=== PATIENT | female | born 1955 | race Caucasian/White ===

== ENCOUNTER 2016-11-02 15:53 | Outpatient (CLI) | payer BC, OTHER | END 2016-11-02 15:54 | disposition home or self-care (01) | DX: I48.91 Unspecified atrial fibrillation (principal); Z79.01 Long term (current) use of anticoagulants ==

== ENCOUNTER 2017-01-11 16:36 | Outpatient (CLI) | payer BC, OTHER | END 2017-01-11 16:37 | disposition home or self-care (01) | DX: I48.91 Unspecified atrial fibrillation (principal); Z79.01 Long term (current) use of anticoagulants ==

== ENCOUNTER 2017-02-03 14:54 | Outpatient (CLI) | payer BC, OTHER | END 2017-02-03 14:55 | disposition home or self-care (01) | DX: I48.91 Unspecified atrial fibrillation (principal); Z79.01 Long term (current) use of anticoagulants ==

== ENCOUNTER 2017-03-01 16:03 | Outpatient (CLI) | payer BC, OTHER | END 2017-03-01 16:04 | disposition home or self-care (01) | LOC: LAB 16:03 | PROVIDERS: ATTEND Family Medicine | DX: I48.2 Chronic atrial fibrillation (principal) | CPT/HCPCS: 85610 ==

== ENCOUNTER 2017-03-17 08:00 | Outpatient (CLI) | payer BC, OTHER | END 2017-03-17 08:01 | disposition home or self-care (01) | LOC: LAB 08:00 | PROVIDERS: ATTEND Family Medicine | DX: I48.91 Unspecified atrial fibrillation (principal); Z79.01 Long term (current) use of anticoagulants | CPT/HCPCS: 85610 ==

== ENCOUNTER 2017-04-05 13:56 | Outpatient (CLI) | payer BC, OTHER | END 2017-04-05 13:57 | disposition home or self-care (01) | LOC: LAB 13:56 | PROVIDERS: ATTEND Family Medicine | DX: Z79.01 Long term (current) use of anticoagulants (principal) | CPT/HCPCS: 85610 ==

== ENCOUNTER 2017-04-14 13:42 | Outpatient (CLI) | payer BC, OTHER | END 2017-04-14 13:43 | disposition home or self-care (01) | LOC: LAB 13:42 | PROVIDERS: ATTEND Family Medicine | DX: I48.91 Unspecified atrial fibrillation (principal); Z79.01 Long term (current) use of anticoagulants | CPT/HCPCS: 85610 ==

== ENCOUNTER 2017-04-26 12:57 | Outpatient (CLI) | payer BC, OTHER | END 2017-04-26 12:58 | disposition home or self-care (01) | LOC: LAB 12:57 | PROVIDERS: ATTEND Family Medicine | DX: I48.91 Unspecified atrial fibrillation (principal); Z79.01 Long term (current) use of anticoagulants | CPT/HCPCS: 85610 ==

== ENCOUNTER 2017-05-19 17:23 | Outpatient (CLI) | payer BC, OTHER | END 2017-05-19 17:24 | disposition home or self-care (01) | LOC: LAB 17:23 | PROVIDERS: ATTEND Family Medicine | DX: I48.91 Unspecified atrial fibrillation (principal); Z79.01 Long term (current) use of anticoagulants | CPT/HCPCS: 85610 ==

== ENCOUNTER 2017-06-15 14:53 | Outpatient (CLI) | payer BC, OTHER | END 2017-06-15 14:54 | disposition home or self-care (01) | LOC: LAB 14:53 | PROVIDERS: ATTEND Family Medicine | DX: I48.91 Unspecified atrial fibrillation (principal); Z79.01 Long term (current) use of anticoagulants | CPT/HCPCS: 85610 ==

== ENCOUNTER 2017-06-20 12:48 | Outpatient (CLI) | payer BC, OTHER ==
--- NOTE | 2017-06-21 19:30 | Mammography Report ---
DIGITAL SCREENING MAMMOGRAM: 06/20/2017 CLINICAL INDICATION: A 61-year-old for screening. COMPARISON: 03/2015, 03/2014, 09/2012, 03/2010. TECHNIQUE: Routine CC and MLO projections were obtained of the breasts. The breasts demonstrate scattered fibroglandular densities bilaterally. Punctate, typically benign c alcifications are present. No suspicious masses, clustered microcalcifications, or regions of norberto ectural distortion are identified. IMPRESSION: BENIGN FINDINGS. RECOMMENDATION: ROUTINE ANNUAL SCREENING UNLESS OTHERWISE CLINICALLY INDICATED. BIRADS CATEGORY: 2, BENIGN FINDINGS. STANDARD QUALIFYING STATEMENTS 1. This examination was reviewed with the aid of Computed-Aided Detection (CAD). 2. A negative or benign imaging report should not delay biopsy if clinically suspicious findings are present. Consider surgical consultation if warranted. More than 5% of cancers are not identified b y imaging. 3. Dense breasts may obscure an underlying neoplasm. JOB #: [id number] EXT JOB #:[id number]
== END 2017-06-20 12:49 | disposition home or self-care (01) ==
LOC: DI 12:48
PROVIDERS: ATTEND Family Medicine
DX: Z12.31 Encounter for screening mammogram for malignant neoplasm of breast (principal)
CPT/HCPCS: 77067

== ENCOUNTER 2017-06-20 13:03 | Outpatient (CLI) | payer BC, OTHER ==
--- NOTE | 2017-06-24 16:13 | DEXA Report ---
DEXA SCAN: 06/20/2017 CLINICAL INDICATION: Postmenopausal. TECHNIQUE: Dual energy x-ray absorptiometry (DXA) was performed on a [employer] system. Regions measured are the AP spine, femoral neck, and, if needed, forearm. COMPARISON: None. In accordance with the International Society for Clinical Densitometry (ISCD) guidelines, data from previous exams may be reanalyzed using current recommendations and techniques. This is done to allow a more accurate basis for comparison with the current study. FINDINGS: The data for the lumbar spine is as follows: REGION BMD (g/cm/cm) T-SCORE Z-SCORE L1 1.000 -1.1 -0.9 L2 1.029 -1.4 -1.3 L3 1.109 -0.8 -0.6 L4 1.064 -1.1 -1.0 TOTAL 1.053 -1.1 -0.9 NOTE: All evaluable vertebrae are used for classification. The data for the hip is as follows: REGION BMD (g/cm/cm) T-SCORE Z-SCORE Neck 0.862 -1.3 -0.7 TOTAL 0.916 -0.7 -0.6 NOTE: The femoral neck or total proximal femur, whichever is lowest, is used for classification. IMPRESSION: THE WHO CLASSIFICATION BASED ON THE INTERNATIONAL REFERENCE STANDARD IS OSTEOPENIA. THE FRACTURE RISK IS INCREASED. RECOMMENDATION: Patients with diagnosis of osteoporosis or osteopenia should have regular bone mineral density assessment. For those eligible for Medicare, routine testing is allowed once every 2 years. Testing frequency can be increased for patients who have rapidly progressing disease or for those who are receiving medical therapy to restore bone mass. COMMENT: World Health Organization (WHO) definitions for osteoporosis and osteopenia: NORMAL BMD: T-score at -1.0 or higher, fracture risk is low. OSTEOPENIA BMD: T-score between -1.0 and -2.5, fracture risk is increased. OSTEOPOROSIS BMD: T-score at -2.5 or lower, fracture risk high. National Osteoporosis Foundation recommends: 1. Obtain adequate dietary calcium (at least 1200 mg per day) and vitamin D (400 -800 international units per day). 2. Participate, as appropriate, in regular weightbearing and muscle- strengthening exercise. 3. Avoid tobacco use and reduce alcohol and caffeine intake. 4. For more detailed information see the website at www.NOF.org. MTDD
== END 2017-06-20 13:04 | disposition home or self-care (01) ==
LOC: DI 13:03
PROVIDERS: ATTEND Family Medicine
DX: Z13.820 Encounter for screening for osteoporosis (principal); Z78.0 Asymptomatic menopausal state; M85.89 Other specified disorders of bone density and structure, multiple sites
CPT/HCPCS: 77080

== ENCOUNTER 2017-06-22 15:53 | Outpatient (CLI) | payer BC, OTHER | END 2017-06-22 15:54 | disposition home or self-care (01) | LOC: LAB 15:53 | PROVIDERS: ATTEND Family Medicine | DX: Z79.01 Long term (current) use of anticoagulants (principal); I48.91 Unspecified atrial fibrillation | CPT/HCPCS: 85610 ==

== ENCOUNTER 2017-07-22 15:24 | Outpatient (CLI) | payer BC, OTHER | END 2017-07-22 15:25 | disposition home or self-care (01) | LOC: LAB 15:24 | PROVIDERS: ATTEND Family Medicine | DX: I48.91 Unspecified atrial fibrillation (principal); Z79.01 Long term (current) use of anticoagulants | CPT/HCPCS: 85610 ==

== ENCOUNTER 2017-07-28 14:07 | Outpatient (CLI) | payer BC, OTHER ==
[2017-07-28 14:27] LABS: PT - PROTHROMBIN TIME 22.7 secs (9.9-12.6)
== END 2017-07-28 14:08 | disposition home or self-care (01) ==
LOC: LAB 14:07
PROVIDERS: ATTEND Family Medicine
DX: I48.2 Chronic atrial fibrillation (principal)
CPT/HCPCS: 36415; 85610

== ENCOUNTER 2017-08-04 14:12 | Outpatient (CLI) | payer BC, OTHER | END 2017-08-04 14:13 | disposition home or self-care (01) | LOC: LAB 14:12 | PROVIDERS: ATTEND Family Medicine | DX: I48.91 Unspecified atrial fibrillation (principal); Z79.01 Long term (current) use of anticoagulants | CPT/HCPCS: 85610 ==

== ENCOUNTER 2017-08-18 13:29 | Outpatient (CLI) | payer BC, OTHER | END 2017-08-18 13:30 | disposition home or self-care (01) | LOC: LAB 13:29 | PROVIDERS: ATTEND Family Medicine | DX: I48.91 Unspecified atrial fibrillation (principal); Z79.01 Long term (current) use of anticoagulants | CPT/HCPCS: 85610 ==

== ENCOUNTER → 2017-08-31 | Outpatient (CLI) | payer BC, OTHER | LOC: LAB 08:00 | PROVIDERS: ATTEND Family Medicine | DX: I48.91 Unspecified atrial fibrillation (principal); Z79.01 Long term (current) use of anticoagulants | CPT/HCPCS: 85610 ==

== ENCOUNTER 2017-09-22 12:48 | Outpatient (CLI) | payer BC, OTHER ==
--- NOTE | 2017-09-22 13:29 | XRAY Preliminary Report ---
Exam: XR HIP W/PELVIS 2-3V LT IMPRESSION: Normal pelvis and hip radiography. [facility] SITE ID: [id number]
--- NOTE | 2017-09-22 13:31 | XRAY Report ---
EXAM: LEFT HIP AND PELVIS RADIOGRAPHY EXAM DATE: 09/22/2017 01:20 PM. HISTORY: PAIN IN LEFT HIP. COMPARISONS: None. TECHNIQUE: 1 view of the pelvis and 1 view of the hip. FINDINGS: Bones: Normal. No fracture or bone lesion. Joints: The bilateral hip, pubis symphysis, and sacroiliac joints are preserved. Soft Tissues: Unremarkable. IMPRESSION: Normal pelvis and hip radiography. [facility] Referring Provider Line: [phone] SITE ID: [id number]
--- NOTE | 2017-09-22 13:34 | XRAY Preliminary Report ---
Exam: XR LUMBAR SPINE 2 VIEW IMPRESSION: Mild degenerative changes. [facility] SITE ID: [id number]
--- NOTE | 2017-09-22 13:36 | XRAY Report ---
EXAM: LUMBOSACRAL SPINE RADIOGRAPHY EXAM DATE: 09/22/2017 01:20 PM. CLINICAL HISTORY: PAIN IN LEFT HIP. COMPARISONS: None. TECHNIQUE: 3 views. FINDINGS: Alignment: Normal. No spondylolisthesis or scoliosis. Bones: 5 lumbar vertebrae. No fractures or bone lesions. Disks: Minimal disk space narrowing in the upper lumbar levels, most marked at L2-L3. Otherwise unrem arkable. Facets: Mild degenerative changes most marked at L4-L5 and L5-S1. Sacroiliac Joints: Unremarkable. Soft Tissues: Unremarkable. IMPRESSION: Mild degenerative changes. [facility] Referring Provider Line: [phone] SITE ID: [id number]
== END 2017-09-22 12:49 | disposition home or self-care (01) ==
LOC: DI 12:48
PROVIDERS: ATTEND Orthopaedic Surgery
DX: M25.552 Pain in left hip (principal); M47.896 Other spondylosis, lumbar region
CPT/HCPCS: 72100

== ENCOUNTER 2017-09-30 14:03 | Emergency (ER) | payer BC, OTHER ==
[2017-09-30] MEDS ORDERED: SODIUM CHLORIDE 0.9% 1,000 ML IV ONE (15:07)
--- NOTE | 2017-09-30 15:11 | ED Physician Documentation ---
PD HPI ABD PAIN - Stated complaint Stated Complaint: LEFT SIDE PAIN - Chief complaint Chief Complaint: Abd Pain - History obtained from History obtained from: Patient - History of Present Illness Timing - onset: Today Timing - details: Still present Quality: Pain Location: LUQ Associated symptoms: No: Fever, Nausea, Vomiting, Chest pain Similar symptoms before: No diagnosis (Similar symptoms about 4 months ago that resolved spontaneously within a few hours.) Recently seen: Surgery (9 days status post left partial knee replacement.) Review of Systems Constitutional: denies: Fever Nose: denies: Congestion Throat: denies: Sore throat Cardiac: denies: Chest pain / pressure Respiratory: denies: Dyspnea, Cough GI: reports: Abdominal Pain, Other ("Lots of belching."). denies: Nausea, Vomiting, Diarrhea : denies: Dysuria, Frequency Skin: denies: Rash Musculoskeletal: reports: Joint pain (Postsurgical left knee pain, without acute exacerbation.). denies: Back pain Neurologic: denies: Focal weakness, Numbness, Headache PD PAST MEDICAL HISTORY - Past Medical History Cardiovascular: Atrial fibrillation Respiratory: Asthma, COPD Endocrine/Autoimmune: Type 2 diabetes GI: GERD - Past Surgical History Past Surgical History: Yes General: Cholecystectomy, Gastric surgery Ortho: Knee replacement (9 days S/P partial left knee replacement.) /JUNIOR BUSINESS ANALYST: Hysterectomy - Present Medications Home Medications: Ambulatory Orders Medication Instructions Recorded Confirmed Furosemide [Lasix] 80 mg PO DAILY 04/15/13 10/10/14 Potassium Chloride 40 meq PO DAILY 04/15/13 10/10/14 Calcium [Calcio [place]] 500 mg PO DAILY 04/16/13 10/10/14 Cholecalciferol (Vitamin D3) 1,000 unit PO DAILY 04/16/13 10/10/14 [Vitamin D] Ferrous Fumarate [Iron] 65 mg PO DAILY 04/16/13 10/10/14 Fluticasone [Flonase] 50 mcg NS TPN/PPN 04/16/13 10/10/14 Ipratropium/Albuterol Inhaler 2 puffs INH QID 04/16/13 10/10/14 [Combivent Inhaler] Lysine [l-Lysine] 500 mg PO PRN 04/16/13 10/10/14 Multivitamin [Multi-Vitamin Daily] 1 each PO DAILY 04/16/13 10/10/14 Warfarin Sodium 10 mg PO DAILY 02/02/14 10/10/14 Epinephrine [Epipen 2-Cortez] 0.3 mg IM ONCE PRN #2 unit 05/11/14 10/10/14 Allopurinol 300 mg PO DAILY 10/10/14 10/10/14 Budesonide [Pulmicort Flexhaler] 2 puffs BID 10/10/14 10/10/14 Cetirizine [ZyrTEC] 10 mg DAILY 10/10/14 10/10/14 Nitrofurantoin [Macrobid] 100 mg PO BID #10 capsule 09/30/17 Promethazine [Phenergan] 25 - 50 mg PO Q6H PRN #10 tab 09/30/17 - Allergies Allergies/Adverse Reactions: Allergies Allergy/AdvReac Type Severity Reaction Status Date / Time acetaminophen [From Vicodin] Allergy Hives Verified 09/30/17 14:16 ciprofloxacin [From Cipro] Allergy Hives Verified 09/30/17 14:16 ciprofloxacin HCl * Allergy Hives Verified 09/30/17 14:16 [From Cipro] hydrocodone bitartrate * Allergy Hives Verified 09/30/17 14:16 [From Vicodin] meperidine HCl * Allergy Emesis Verified 09/30/17 14:16 [From Demerol] NSAIDS (Non-Steroidal Allergy Unknown Verified 09/30/17 14:16 Anti-Inflamma clarithromycin [From Biaxin] AdvReac Intermediate diarrhea Verified 09/30/17 14: 16 - Living Situation Living Situation: reports: With spouse/s.o. Living Arrangement: reports: At home - Social History Does the pt smoke?: No Smoking Status: Never smoker Does the pt drink ETOH?: No Does the pt have substance abuse?: No - Immunizations Immunizations are current?: No Immunizations: TDAP >10years/unknown, Other immun current - POLST Patient has POLST: No PD ED PE NORMAL - Vitals Vital signs reviewed: Yes (normal) - General General: Alert and oriented X 3, Well developed/nourished, Other (Overweight.) - HEENT HEENT: Atraumatic, Moist mucous membranes, Pharynx benign - Neck Neck: No adenopathy, No JVD - Cardiac Cardiac: RRR, No murmur - Respiratory Respiratory: No respiratory distress, Clear bilaterally - Abdomen Abdomen: Normal bowel sounds, Soft, Other (Mild tenderness to palpation in the left upper quadrant, without rebound tenderness or guarding.) - Back Back: No CVA TTP - Derm Derm: No rash - Extremities Extremities: No edema, No calf tenderness / cord, Other (Healing surgical wound at the anterior aspect of the left knee, without erythema or warmth to palpation.) - Neuro Neuro: Alert and oriented X 3, No motor deficit, Normal speech Results - Vitals Vitals: Oxygen O2 Source Room air - EKG (time done) 14:22 Rate: Rate (enter#) (75) Rhythm: NSR [place]: LAD (-41) QRS: LVH, Poor R wave progression Ischemia: Non specific changes (T-wave flattening in II, aVF, and V3-V6.) Compare to prior EKG: Unchanged from prior EKG Computer interpretation: Agree with computer - Labs Labs: Laboratory Tests 09/30/17 09/30/17 09/30/17 14:45 14:45 15:07 WBC 7.0 RBC 4.80 Hgb 13.9 Hct 41.1 MCV 85.6 MCH 29.0 MCHC 33.9 RDW 14.5 Plt Count 250 MPV 9.4 Neut # 4.8 Lymph # 1.3 L [place] # 0.6 Eos # 0.2 Baso # 0.0 Absolute Nucleated RBC 0.00 Nucleated RBC % 0.0 PT 26.0 H INR 2.4 H Sodium 139 Potassium 3.6 Chloride 105 Carbon Dioxide 22 Anion Gap 12.0 BUN 18 Creatinine 0.9 Estimated GFR (MDRD) 64 L Glucose 113 H Calcium 9.7 Total Bilirubin 0.4 AST 24 ALT 12 Alkaline Phosphatase 97 Total Protein 7.6 Albumin 3.9 Globulin 3.7 Albumin/Globulin Ratio 1.1 Lipase 25 Urine Color Urine Clarity Urine pH Ur Specific [place] Urine Protein Urine Glucose (UA) Urine Ketones Urine Occult Blood Urine Nitrite Urine Bilirubin Urine Urobilinogen Ur Leukocyte Esterase Urine RBC Urine WBC Ur Squamous Epith Cells Urine Bacteria Urine Mucus Ur Microscopic Review Urine Culture Comments 09/30/17 16:00 WBC RBC Hgb Hct MCV MCH MCHC RDW Plt Count MPV Neut # Lymph # [place] # Eos # Baso # Absolute Nucleated RBC Nucleated RBC % PT INR Sodium Potassium Chloride Carbon Dioxide Anion Gap BUN Creatinine Estimated GFR (MDRD) Glucose Calcium Total Bilirubin AST ALT Alkaline Phosphatase Total Protein Albumin Globulin Albumin/Globulin Ratio Lipase Urine Color DARK YELLOW Urine Clarity HAZY Urine pH 6.0 Ur Specific [place] 1.025 Urine Protein TRACE Urine Glucose (UA) NEGATIVE Urine Ketones NEGATIVE Urine Occult Blood SMALL H Urine Nitrite NEGATIVE Urine Bilirubin SMALL H Urine Urobilinogen 0.2 (NORMAL) Ur Leukocyte Esterase SMALL H Urine RBC 6-10 H Urine WBC 6-10 H Ur Squamous Epith Cells MOD Squamous H Urine Bacteria Few Urine Mucus Few Strands Ur Microscopic Review INDICATED Urine Culture Comments NOT INDICATED PD MEDICAL DECISION MAKING - ED course Complexity details: reviewed results, re-evaluated patient, considered differential, d/w patient, d/w family ED course: The patient's presentation is most consistent with gastritis versus esophagitis. I do not think her left upper quadrant abdominal discomfort represents cardiac etiology. There may be a component of decreased bowel motility caused by recent surgery and postsurgical pain medication, but there is no clinical evidence to suggest bowel obstruction. Urinalysis is suggestive of bladder infection. Her presentation does not suggest pyelonephritis. In addition her volume status is mildly volume depleted due to poor oral intake. Treatment in the emergency department included administration of normal saline 1 L IV. She is being discharged with prescriptions for Macrobid and for Phenergan. She has access to omeprazole at home, which she will begin taking on a daily basis. I discussed with her and her the results of her workup, the importance of outpatient follow-up, as well as potentially worrisome signs or symptoms that should prompt reevaluation in the emergency department. Departure - Departure Disposition: 01 Home, Self Care Clinical Impression: Dehydration Gastritis Qualifiers: Gastritis type: unspecified gastritis Chronicity: acute Gastritis bleeding: without bleeding Qualified Code(s): K29.00 - Acute gastritis without bleeding Urinary tract infection Qualifiers: Urinary tract infection type: acute cystitis Hematuria presence: without hematuria Qualified Code(s): N30.00 - Acute cystitis without hematuria Condition: Stable Instructions: ED Dehydration, ED Gastritis, ED UTI Cystitis Female Follow-Up: Syl Le MD [Primary Care Provider] - Prescriptions: Nitrofurantoin [Macrobid] 100 mg PO BID #10 capsule Promethazine [Phenergan] 25 - 50 mg PO Q6H PRN #10 tab PRN Reason: Nausea / Vomiting Comments: Drink plenty of fluids. Take Macrobid twice daily as prescribed. You can use Phenergan as prescribed if needed for nausea. You should take omeprazole daily. Follow up with your primary physician within 1-2 weeks. Call to schedule appointment. Return to the emergency department if you develop increasing abdominal pain, persistent vomiting, or otherwise worsening symptoms. Discharge Date/Time: 09/30/17 17:30
[2017-09-30 15:18] LABS: BASOPHILS % (AUTO) 0.4 %; EOSINOPHILS # (AUTO) 0.2 10^3/uL (0.0-0.7); EOSINOPHILS % (AUTO) 2.4 %; HCT - HEMATOCRIT 41.1 % (37.0-47.0); HGB - HEMOGLOBIN 13.9 g/dL (12.0-16.0); LYMPHOCYTES # (AUTO) 1.3 10^3/uL (1.5-3.5); LYMPHOCYTES % (AUTO) 19.3 %; MEAN CORPUSCULAR HGB CONC 33.9 g/dL (32.0-36.0); MEAN CORPUSCULAR VOLUME 85.6 fL (81.0-99.0); MEAN PLATELET VOLUME 9.4 fL (7.9-10.8); MONOCYTES # (AUTO) 0.6 10^3/uL (0.0-1.0); MONOCYTES % (AUTO) 8.3 %; NEUTROPHILS # (AUTO) 4.8 10^3/uL (1.5-6.6); NEUTROPHILS % (AUTO) 69.6 %; RED CELL DISTRIBUTION WIDTH 14.5 % (12.0-15.0)
[2017-09-30 15:32] LABS: ALBUMIN/GLOBULIN RATIO 1.1 (1.0-2.2); BILIRUBIN,TOTAL 0.4 mg/dL (0.2-1.0); CALCIUM 9.7 mg/dL (8.5-10.3); CREATININE 0.9 mg/dL (0.4-1.0); POTASSIUM 3.6 mmol/L (3.5-5.0); TOTAL PROTEIN 7.6 g/dL (6.7-8.2)
[2017-09-30 16:32] LABS: BILIRUBIN,URINE SMALL (NEGATIVE); UA w/ MICROSCOPIC CHARGE YES
[2017-09-30 16:34] LABS: UR CULTURE IF IND NOT INDICATED
[2017-09-30 17:20] VITALS: BP 120/80
[2017-09-30 18:09] LABS: INR 2.4 (0.8-1.2)
== END 2017-09-30 17:30 | disposition home or self-care (01) ==
LOC: ED 14:03
DX: E86.0 Dehydration (principal); K29.00 Acute gastritis without bleeding; N30.00 Acute cystitis without hematuria; I44.4 Left anterior fascicular block; E11.9 Type 2 diabetes mellitus without complications; I48.91 Unspecified atrial fibrillation; Z79.01 Long term (current) use of anticoagulants; Z96.652 Presence of left artificial knee joint
CPT/HCPCS: 36415; 80053; 81001; 81003; 83690; 85025; 85610; 87086; 93005; 99284

== ENCOUNTER 2017-10-11 14:41 | Outpatient (CLI) | payer BC, OTHER | END 2017-10-11 14:42 | disposition home or self-care (01) | LOC: LAB 14:41 | PROVIDERS: ATTEND Family Medicine | DX: I48.91 Unspecified atrial fibrillation (principal); Z79.01 Long term (current) use of anticoagulants | CPT/HCPCS: 85610 ==

== ENCOUNTER 2017-10-26 13:49 | Outpatient (CLI) | payer BC, OTHER | END 2017-10-26 13:50 | disposition home or self-care (01) | LOC: SC 13:49 | PROVIDERS: ATTEND Nurse Practitioner Family | DX: G47.33 Obstructive sleep apnea (adult) (pediatric) (principal) | CPT/HCPCS: 99212; 99214 ==

== ENCOUNTER 2017-10-26 15:18 | Outpatient (CLI) | payer BC, OTHER | END 2017-10-26 15:19 | disposition home or self-care (01) | LOC: LAB 15:18 | PROVIDERS: ATTEND Family Medicine | DX: I48.91 Unspecified atrial fibrillation (principal); Z79.01 Long term (current) use of anticoagulants | CPT/HCPCS: 85610 ==

== ENCOUNTER 2017-11-01 12:50 | Outpatient (CLI) | payer BC, OTHER | END 2017-11-01 12:51 | disposition home or self-care (01) | LOC: LAB 12:50 | PROVIDERS: ATTEND Family Medicine | DX: I48.91 Unspecified atrial fibrillation (principal); Z79.01 Long term (current) use of anticoagulants | CPT/HCPCS: 85610 ==

== ENCOUNTER 2017-11-15 13:51 | Outpatient (CLI) | payer BC, OTHER | END 2017-11-15 13:52 | disposition home or self-care (01) | LOC: LAB 13:51 | PROVIDERS: ATTEND Family Medicine | DX: I48.91 Unspecified atrial fibrillation (principal); Z79.01 Long term (current) use of anticoagulants | CPT/HCPCS: 84432; 85610; 86800 ==

== ENCOUNTER 2017-11-28 12:54 | Outpatient (CLI) | payer BC, OTHER | END 2017-11-28 12:55 | disposition home or self-care (01) | LOC: LAB 12:54 | PROVIDERS: ATTEND Family Medicine | DX: I48.91 Unspecified atrial fibrillation (principal); Z79.01 Long term (current) use of anticoagulants | CPT/HCPCS: 85610 ==

== ENCOUNTER 2017-12-07 14:54 | Outpatient (CLI) | payer BC, OTHER | END 2017-12-07 14:55 | disposition home or self-care (01) | LOC: LAB 14:54 | PROVIDERS: ATTEND Family Medicine | DX: I48.91 Unspecified atrial fibrillation (principal); Z79.01 Long term (current) use of anticoagulants | CPT/HCPCS: 85610 ==

== ENCOUNTER 2017-12-22 15:27 | Outpatient (CLI) | payer BC, OTHER | END 2017-12-22 15:28 | disposition home or self-care (01) | LOC: LAB 15:27 | PROVIDERS: ATTEND Family Medicine | DX: I48.91 Unspecified atrial fibrillation (principal); Z79.01 Long term (current) use of anticoagulants | CPT/HCPCS: 85610 ==

== ENCOUNTER 2018-01-05 13:48 | Outpatient (CLI) | payer BC, OTHER | END 2018-01-05 13:49 | disposition home or self-care (01) | LOC: LAB 13:48 | PROVIDERS: ATTEND Family Medicine | DX: I48.91 Unspecified atrial fibrillation (principal); Z79.01 Long term (current) use of anticoagulants | CPT/HCPCS: 85610 ==

== ENCOUNTER 2018-02-06 16:40 | Outpatient (CLI) | payer BC, OTHER | END 2018-02-06 16:41 | disposition home or self-care (01) | LOC: LAB 16:40 | PROVIDERS: ATTEND Family Medicine | DX: I48.91 Unspecified atrial fibrillation (principal); Z79.01 Long term (current) use of anticoagulants | CPT/HCPCS: 85610 ==

== ENCOUNTER 2018-05-27 20:33 | Emergency (ER) | payer BC, OTHER ==
[2018-05-27 20:39] VITALS: BP 159/100
[2018-05-27] MEDS ORDERED: diphenhydrAMINE 25 MG CAPSULE PO STA (21:15)
[2018-05-27] MEDS ORDERED: predniSONE 20 MG TABLET PO STA (21:15)
--- NOTE | 2018-05-27 21:21 | ED Physician Documentation ---
History of Present Illness - Stated complaint Stated Complaint: ALLERGIC REACTION - Chief complaint Chief Complaint: Allergic Rx - History obtained from History obtained from: Patient - History of Present Illness Timing: How many days ago (2) - Additonal information Additional information: Patient is a 62 year old female with multiple food allergies who is presenting to the emergency department for an allergic reaction. Patient states that three days ago she had some sunflower seeds. patient didn't have much of a reaction but the following day she had a granola bar with seeds in it and had facial swelling. patient did have an appointment already with her industrial engineer. Patient had no wheezing or soft palate swelling so no epinephrine was given. The first day of the reaction the patient took 4 benadryl throughout the day. the next day patient only took one benadryl. Patient stated that she had a concert the next day she wanted to go to so she wanted to be seen again. Review of Systems Ten Systems: 10 systems reviewed and negative Eyes: reports: Other (eyelid swelling) Cardiac: denies: Chest pain / pressure, Palpitations Respiratory: denies: Dyspnea, Cough Skin: reports: Rash. denies: Lesions PD PAST MEDICAL HISTORY - Past Medical History Past Medical History: Yes Cardiovascular: Atrial fibrillation Respiratory: Asthma, COPD Endocrine/Autoimmune: Type 2 diabetes GI: GERD - Past Surgical History Past Surgical History: Yes General: Cholecystectomy, Gastric surgery Ortho: Knee replacement /COOKING INSTRUCTOR: Hysterectomy - Present Medications Home Medications: Ambulatory Orders Medication Instructions Recorded Confirmed Furosemide [Lasix] 80 mg PO DAILY 04/15/13 10/10/14 Potassium Chloride 40 meq PO DAILY 04/15/13 10/10/14 Calcium [Calcio [place]] 500 mg PO DAILY 04/16/13 10/10/14 Cholecalciferol (Vitamin D3) 1,000 unit PO DAILY 04/16/13 10/10/14 [Vitamin D] Ferrous Fumarate [Iron] 65 mg PO DAILY 04/16/13 10/10/14 Fluticasone [Flonase] 50 mcg NS TPN/PPN 04/16/13 10/10/14 Ipratropium/Albuterol Inhaler 2 puffs INH QID 04/16/13 10/10/14 [Combivent Inhaler] Lysine [l-Lysine] 500 mg PO PRN 04/16/13 10/10/14 Multivitamin [Multi-Vitamin Daily] 1 each PO DAILY 04/16/13 10/10/14 Warfarin Sodium 10 mg PO DAILY 02/02/14 10/10/14 Epinephrine [Epipen 2-[place]ort[place]] 0.3 mg IM ONCE PRN #2 unit 05/11/14 10/10/14 Allopurinol 300 mg PO DAILY 10/10/14 10/10/14 Budesonide [Pulmicort Flexhaler] 2 puffs BID 10/10/14 10/10/14 Cetirizine [ZyrTEC] 10 mg DAILY 10/10/14 10/10/14 Nitrofurantoin [Macrobid] 100 mg PO BID #10 capsule 09/30/17 Promethazine [Phenergan] 25 - 50 mg PO Q6H PRN #10 tab 09/30/17 predniSONE [Prednisone] 40 mg PO DAILY 5 Days tablet 05/27/18 - Allergies Allergies/Adverse Reactions: Allergies Allergy/AdvReac Type Severity Reaction Status Date / Time acetaminophen [From Vicodin] Allergy Hives Verified 05/27/18 20:40 ciprofloxacin [From Cipro] Allergy Hives Verified 05/27/18 20:40 ciprofloxacin HCl * Allergy Hives Verified 05/27/18 20:40 [From Cipro] hydrocodone bitartrate * Allergy Hives Verified 05/27/18 20:40 [From Vicodin] macadamia nut oil Allergy Anaphylaxis Verified 05/27/18 20:40 meperidine HCl * Allergy Emesis Verified 05/27/18 20:40 [From Demerol] NSAIDS (Non-Steroidal Allergy Unknown Verified 05/27/18 20:40 Anti-Inflamma shrimp Allergy Anaphylaxis Verified 05/27/18 20:40 sunflower seed Allergy Edema Verified 05/27/18 20:40 clarithromycin [From Biaxin] AdvReac Intermediate diarrhea Verified 05/27/18 20: 40 - Social History Does the pt smoke?: No Smoking Status: Never smoker Does the pt drink ETOH?: No Does the pt have substance abuse?: No - Immunizations Immunizations are current?: No Immunizations: TDAP >10years/unknown, Other immun current - POLST Patient has POLST: No PD ED PE NORMAL - Vitals Vital signs reviewed: Yes - General General: Alert and oriented X 3, No acute distress - HEENT HEENT: Atraumatic, PERRL, Other (mild eyelid swelling, no soft palate swelling) - Cardiac Cardiac: RRR, No murmur - Respiratory Respiratory: No respiratory distress, Clear bilaterally - Abdomen Abdomen: Soft - Extremities Extremities: No deformity, No edema - Neuro Neuro: Alert and oriented X 3, No motor deficit, Normal speech Eye Opening: Spontaneous PD ED PE EXPANDED - Derm Derm: Rash (mild erythema of patient's face) Results - Vitals Vitals: Vital Signs - 24 hr 05/27/18 20:35 Temperature 36.5 C Heart Rate 90 Respiratory 18 Rate Blood Pressure 159/100 H O2 Saturation 96 Oxygen O2 Source Room air PD MEDICAL DECISION MAKING - ED course Complexity details: reviewed old records, reviewed results, re-evaluated patient , considered differential, d/w patient ED course: Patient was seen and examined at bedside. patient was well appearing and in no distress. patient had mild eyelid swelling, which was improving compared to previous pictures. Patient was treated with benadryl and prednisone. patient required no further work up and was stable for discharge with outpatient follow up. - Sepsis Event Vital Signs: Vital Signs - 24 hr 05/27/18 20:35 Temperature 36.5 C Heart Rate 90 Respiratory 18 Rate Blood Pressure 159/100 H O2 Saturation 96 Oxygen O2 Source Room air Departure - Departure Disposition: 01 Home, Self Care Clinical Impression: Allergic reaction Condition: Good Instructions: ED Allergic Reaction General Other Follow-Up: primary,care provider [Other] - As Needed Prescriptions: predniSONE [Prednisone] 40 mg PO DAILY 5 Days tablet Comments: Your symptoms today are being caused by an allergic reaction. You should increase the amount of benadryl you are taking to 50mg every 6-8 hrs as needed. You will also be placed on a short course of steroids as well. You should travel with your epi pen based on your history, and obviously avoid any foods in the class of your other allergies. You should return to the emergency department for facial/tongue swelling, wheezing, new worsening or uncontrollable symptoms. Discharge Date/Time: 05/27/18 21:27
== END 2018-05-27 21:27 | disposition home or self-care (01) ==
LOC: ED 20:33
DX: T78.40XA Allergy, unspecified, initial encounter (principal); E11.9 Type 2 diabetes mellitus without complications; J44.9 Chronic obstructive pulmonary disease, unspecified; I48.91 Unspecified atrial fibrillation; Z79.01 Long term (current) use of anticoagulants
CPT/HCPCS: 99283; A9270; J7510

== ENCOUNTER 2018-08-28 19:21 | Observation (INO) | payer BC, OTHER ==
[2018-08-28 19:52] LABS: BASOPHILS % (AUTO) 0.5 %; EOSINOPHILS # (AUTO) 0.2 10^3/uL (0.0-0.7); EOSINOPHILS % (AUTO) 2.4 %; HGB - HEMOGLOBIN 14.1 g/dL (12.0-16.0); LYMPHOCYTES # (AUTO) 2.1 10^3/uL (1.5-3.5); LYMPHOCYTES % (AUTO) 21.8 %; MEAN CORPUSCULAR HEMOGLOBIN 29.4 pg (27.0-31.0); MEAN CORPUSCULAR HGB CONC 32.9 g/dL (32.0-36.0); MEAN CORPUSCULAR VOLUME 89.4 fL (81.0-99.0); MONOCYTES # (AUTO) 0.6 10^3/uL (0.0-1.0); MONOCYTES % (AUTO) 6.4 %; NEUTROPHILS # (AUTO) 6.5 10^3/uL (1.5-6.6); NEUTROPHILS % (AUTO) 68.9 %; PLT - PLATELET COUNT 252 10^3/uL (130-450); RED BLOOD COUNT 4.78 10^6/uL (4.20-5.40); RED CELL DISTRIBUTION WIDTH 13.9 % (12.0-15.0); WHITE BLOOD COUNT 9.4 x10^3/uL (4.8-10.8)
--- NOTE | 2018-08-28 20:01 | ED Physician Documentation ---
PD HPI CHEST PAIN - Stated complaint Stated Complaint: CP - Chief complaint Chief Complaint: Cardiac - History obtained from History obtained from: Patient - History of Present Illness Timing - onset: Other (She had afib ablation 11/27. Today at 1800 developed sensation of RHR and back/chest pain.) Quality: Pressure Location: Left chest Radiation: Back Worsened by: No: Exertion Associated symptoms: No: Shortness of air Recently seen: Not recently seen PD PAST MEDICAL HISTORY - Past Medical History Past Medical History: Yes Cardiovascular: Atrial fibrillation Respiratory: Asthma, COPD Endocrine/Autoimmune: Type 2 diabetes GI: GERD - Past Surgical History Past Surgical History: Yes General: Cholecystectomy, Gastric surgery Ortho: Knee replacement /SAFETY AND SECURITY OFFICER: Hysterectomy - Present Medications Home Medications: Ambulatory Orders Medication Instructions Recorded Confirmed Furosemide [Lasix] 80 mg PO DAILY 04/15/13 10/10/14 RX: Potassium Chloride 40 meq PO DAILY 04/15/13 10/10/14 Calcium [Calcio [place]] 500 mg PO DAILY 04/16/13 10/10/14 Cholecalciferol (Vitamin D3) 1,000 unit PO DAILY 04/16/13 10/10/14 [Vitamin D] Ferrous Fumarate [Iron] 65 mg PO DAILY 04/16/13 10/10/14 Fluticasone [Flonase] 50 mcg NS TPN/PPN 04/16/13 10/10/14 Ipratropium/Albuterol Inhaler 2 puffs INH QID 04/16/13 10/10/14 [Combivent Inhaler] Lysine [l-Lysine] 500 mg PO PRN 04/16/13 10/10/14 Multivitamin [Multi-Vitamin Daily] 1 each PO DAILY 04/16/13 10/10/14 RX: Warfarin Sodium 10 mg PO DAILY 02/02/14 10/10/14 Epinephrine [Epipen 2-Cortez] 0.3 mg IM ONCE PRN #2 unit 05/11/14 10/10/14 Budesonide [Pulmicort Flexhaler] 2 puffs BID 10/10/14 10/10/14 Cetirizine [ZyrTEC] 10 mg DAILY 10/10/14 10/10/14 RX: Allopurinol 300 mg PO DAILY 10/10/14 10/10/14 Nitrofurantoin [Macrobid] 100 mg PO BID #10 capsule 09/30/17 Promethazine [Phenergan] 25 - 50 mg PO Q6H PRN #10 tab 09/30/17 RX: predniSONE [Prednisone] 40 mg PO DAILY 5 Days tablet 05/27/18 - Allergies Allergies/Adverse Reactions: Allergies Allergy/AdvReac Type Severity Reaction Status Date / Time acetaminophen [From Vicodin] Allergy Hives Verified 08/28/18 19:35 ciprofloxacin [From Cipro] Allergy Hives Verified 08/28/18 19:35 ciprofloxacin HCl * Allergy Hives Verified 08/28/18 19:35 [From Cipro] hydrocodone bitartrate * Allergy Hives Verified 08/28/18 19:35 [From Vicodin] macadamia nut oil Allergy Anaphylaxis Verified 08/28/18 19:35 meperidine HCl * Allergy Emesis Verified 08/28/18 19:35 [From Demerol] NSAIDS (Non-Steroidal Allergy Unknown Verified 08/28/18 19:35 Anti-Inflamma shrimp Allergy Anaphylaxis Verified 08/28/18 19:35 sunflower seed Allergy Edema Verified 08/28/18 19:35 clarithromycin [From Biaxin] AdvReac Intermediate diarrhea Verified 08/28/18 19:35 - Social History Does the pt smoke?: No Smoking Status: Never smoker Does the pt drink ETOH?: No Does the pt have substance abuse?: No - Immunizations Immunizations are current?: No Immunizations: TDAP >10years/unknown, Other immun current - POLST Patient has POLST: No PD ED PE NORMAL - Vitals Vital signs reviewed: Yes - General General: Alert and oriented X 3, No acute distress - HEENT HEENT: PERRL, EOMI - Neck Neck: Supple, no meningeal sign, No bony TTP - Cardiac Cardiac: RRR, No murmur - Respiratory Respiratory: No respiratory distress, Clear bilaterally - Abdomen Abdomen: Normal bowel sounds, Soft, Non tender - Back Back: No CVA TTP, No spinal TTP - Derm Derm: Normal color, Warm and dry - Extremities Extremities: No edema, No calf tenderness / cord - Neuro Neuro: Alert and oriented X 3, Normal speech Results - Vitals Vitals: Vital Signs - 24 hr 08/28/18 08/28/18 19:25 20:32 Temperature 36.8 C Heart Rate 93 82 Respiratory 18 14 Rate Blood Pressure 154/73 H 140/82 H O2 Saturation 99 97 Oxygen O2 Source Room air - EKG (time done) 1931 Rate: Rate (enter#) (84) Rhythm: NSR David: Normal QRS: LVH Ischemia: Non specific changes Computer interpretation: Agree with computer - Labs Labs: Laboratory Tests 08/28/18 08/28/18 08/28/18 19:40 19:45 19:45 WBC 9.4 RBC 4.78 Hgb 14.1 Hct 42.7 MCV 89.4 MCH 29.4 MCHC 32.9 RDW 13.9 Plt Count 252 MPV 9.0 Neut # (Auto) 6.5 Lymph # (Auto) 2.1 Grant # (Auto) 0.6 Eos # (Auto) 0.2 Baso # (Auto) 0.0 Absolute Nucleated RBC 0.00 Nucleated RBC % 0.0 Sodium 137 Potassium 3.4 L Chloride 105 Carbon Dioxide 26 Anion Gap 6.0 BUN 19 Creatinine 0.9 Estimated GFR (MDRD) 63 L Glucose 106 H Calcium 8.7 Total Bilirubin 0.7 AST 28 ALT 13 Alkaline Phosphatase 129 H Troponin I Total Protein 7.9 Albumin 4.3 Globulin 3.6 Albumin/Globulin Ratio 1.2 Lipase 31 Urine Color LIGHT YELLOW Urine Clarity CLEAR Urine pH 6.0 Ur Specific [place] <=1.005 Urine Protein NEGATIVE Urine Glucose (UA) NEGATIVE Urine Ketones NEGATIVE Urine Occult Blood NEGATIVE Urine Nitrite NEGATIVE Urine Bilirubin NEGATIVE Urine Urobilinogen 0.2 (NORMAL) Ur Leukocyte Esterase NEGATIVE Ur Microscopic Review NOT INDICATED Urine Culture Comments NOT INDICATED 08/28/18 19:45 WBC RBC Hgb Hct MCV MCH MCHC RDW Plt Count MPV Neut # (Auto) Lymph # (Auto) Grant # (Auto) Eos # (Auto) Baso # (Auto) Absolute Nucleated RBC Nucleated RBC % Sodium Potassium Chloride Carbon Dioxide Anion Gap BUN Creatinine Estimated GFR (MDRD) Glucose Calcium Total Bilirubin AST ALT Alkaline Phosphatase Troponin I < 0.04 Total Protein Albumin Globulin Albumin/Globulin Ratio Lipase Urine Color Urine Clarity Urine pH Ur Specific [place] Urine Protein Urine Glucose (UA) Urine Ketones Urine Occult Blood Urine Nitrite Urine Bilirubin Urine Urobilinogen Ur Leukocyte Esterase Ur Microscopic Review Urine Culture Comments PD MEDICAL DECISION MAKING - ED course ED course: Initially on the air pollution analyst she was in a normal sinus rhythm, but while we were talking in the room she went into rapid A. fib with heart rate about 150. She does have a pill in the pocket beta-justin regimen for when this happens. We gave her some IV Lopressor, her A. fib episodes became less frequent but still occasional. She was still having chest pain though in the chest pain was not temporally related to the A. fib and therefore I am concerned about ACS. Initial troponin was negative. We reviewed records from [facility], she is never had a cardiac angiogram for coronary evaluation and she agrees with this. Spoke with Dr. Rader for observation at 2130. Departure - Departure Disposition: ED Place in Observation Clinical Impression: Chest pain, Atrial fibrillation Condition: Stable
[2018-08-28 20:10] LABS: ALBUMIN 4.3 g/dL (3.2-5.5); ALBUMIN/GLOBULIN RATIO 1.2 (1.0-2.2); BILIRUBIN,TOTAL 0.7 mg/dL (0.2-1.0); CALCIUM 8.7 mg/dL (8.5-10.3); CREATININE 0.9 mg/dL (0.4-1.0); TOTAL PROTEIN 7.9 g/dL (6.7-8.2)
[2018-08-28] MEDS ORDERED: METOPROLOL 5 MG/5 ML VIAL IVP STA (20:20)
[2018-08-28] MEDS ORDERED: POTASSIUM BICARB 25 MEQ TABLET PO STA (20:21)
--- NOTE | 2018-08-28 20:30 | XRAY Report ---
Reason: chest pain Procedure Date: 08/28/2018 Accession Number: [id number] / [id number] Procedure: XR - Chest 1 View X-Ray CPT Code: 39856 FULL RESULT: EXAM: CHEST RADIOGRAPHY EXAM DATE: 08/28/2018 08:17 PM. CLINICAL HISTORY: Chest pain. COMPARISON: 02/02/2016. TECHNIQUE: 1 view. FINDINGS: Lungs/Pleura: Clear. No effusion or pneumothorax. Mediastinum: Within exam limitations, the cardiomediastinal contour is normal. Upper lobe vessels not distended. Other: None. IMPRESSION: No acute disease. RADIA
[2018-08-28 20:34] LABS: BILIRUBIN,URINE NEGATIVE (NEGATIVE); GLUCOSE, URINE (UA) NEGATIVE (NEGATIVE); KETONES,URINE (UA) NEGATIVE (NEGATIVE); LEUKOCYTE ESTERASE, URINE NEGATIVE (NEGATIVE); NITRITE,URINE NEGATIVE (NEGATIVE); OCCULT BLOOD,URINE NEGATIVE (NEGATIVE); PROTEIN,URINE NEGATIVE (NEGATIVE); UROBILINOGEN,URINE 0.2 (NORMAL) E.U./dL (NORMAL)
[2018-08-28 20:35] LABS: CLARITY,URINE CLEAR (CLEAR)
--- NOTE | 2018-08-28 22:18 | HISTORY & PHYSICAL EXAMINATION ---
Chief Complaint - Chief Complaint Chief Complaint: Chest pain in a patient who is diabetic, hypertensive History of Present Illness - Admitted From Admitted From:: Home/emergency room - History Obtained From Records Reviewed: Dane History obtained from: Patient Exam Limitations: None - History of Present Illness HPI Comment/Other: She is a 62-year-old female who is cardiac risk factors include hypertension, diet-controlled diabetes, hyperlipidemia and presents with intermittent chest pain today. She had gastric bypass surgery in 2012, and with the loss of all the weight has managed to come off all of her medications for diabetes and hypertension and hyperlipidemia. Her cardiac history dates to paroxysmal atrial fibrillation in 2012. She finally had ablation earlier this year but still goes in and out of atrial fibrillation. She is not on anticoagulation at her request according to review of the cardiology notes in [facility]. And she has been intolerant of antiarrhythmic such as flecainide. Because of a family history of coronary artery disease and her risk of coronary artery disease a stress test was done in February 2017. She had normal left ventricular wall thickening. No segmental wall motion abnormalities. No transient ischemic dilation. Ejection fraction was 66%. Normal distribution of activity of the tracer in the right and left myocardium with no fixed or reversible perfusion defects. As such when she underwent her ablation in November [facility]. CT angiogram was done to look at her venous anatomy November 2017 and was normal. Echo echocardiogram November 2017 showed an ejection fraction of 60-65%, normal wall motion, and no significant valvular heart disease. The ablation was performed November 23, 2017. An intracardiac echo showed no clot. She was seen in follow-up February 2018. At that time she had no cardiac issues and her EKG showed sinus rhythm. She was only on beta blockade, intolerant and intolerant of flecainide. She wanted to stop anticoagulation. As such that was stopped. Today she developed a sensation of a rapid heart rate with central chest pain that radiated to the back. No nausea, diaphoresis, jaw pain. No relation to exertion. Present at rest. She came to the hospital to make sure she did not have anything nefarious going on. While she was in A. fib, she did convert to sinus on her own. This was after IV Lopressor. In her ER telemetry following, she was in and out of A. fib. The A. fib was not related to her chest pain. As such because of her risk factors, she is now placed in observation for rule out ME. History - Past Medical History Cardiovascular: reports: Hypertension (Before her gastric bypass surgery), High cholesterol (Before her gastric bypass surgery), Atrial fibrillation Respiratory: reports: Asthma (seen by Pulmonary Consult 2013. She does not have COPD), Sleep apnea (since 2008 resolved w weight loss) Neuro: reports: Peripheral neuropathy (of feet in past) Endocrine/Autoimmune: reports: Type 2 diabetes (since 2011, now diet controlled) GI: reports: GERD, Hiatal hernia, Colon polyps, Hemorrhoids, Diverticulitis, Cholelithiasis, Other (oral herpes 1976) TELEPHONE STERILIZER: reports: Fibroids (1999) : reports: Retention (And microscopic hematuria. Has been evaluated by uro logy approximately 2002 and 2012), Kidney stones (2012) HEENT: reports: Chronic sinusitis Psych: reports: Anxiety Musculoskeletal: reports: Osteoarthritis, Fibromyalgia, Gout (with overnight stay at [place] for great toe redness 01/2014) Derm: reports: Rosacea MRSA Hx?: No Other Past Medical History: morbid obesity with Olivia-en-Y 06/2013 - Past Surgical History General: reports: Cholecystectomy (1996), Gastric surgery Ortho: reports: Knee replacement /TELEPHONE STERILIZER: reports: Hysterectomy (1999) - Family & Social History Family History Comment/Other: Father is at the age of 59 from a heart attack. Mom is from COPD at the age of 79. 2 sisters, with no major medical issues. 2 children: irritable bowel syndrome, anxiety, and Asperger's syndrome Living arrangement: At home Living Situation: With spouse/s.o. Social History Notes: to a retired person. He also retired from [employer]. Sometimes financial worries. She never smoked, rarely drank. Has no history of recreational substance abuse. - Substance History Use: Uses substance without health or social issues: NONE Abuse: Recurrent use of substance despite neg consequences: NONE Dependence: Experiences withdrawal or developed tolerances: NONE - POLST Patient has POLST: No POLST Status: Full Code Meds/Allgy - Home Medications Home Medications: Ambulatory Orders Medication Instructions Recorded Confirmed Furosemide [Lasix] 80 mg PO DAILY 04/15/13 10/10/14 Potassium Chloride 40 meq PO DAILY 04/15/13 10/10/14 Calcium [Calcio [place]] 500 mg PO DAILY 04/16/13 10/10/14 Cholecalciferol (Vitamin D3) 1,000 unit PO DAILY 04/16/13 10/10/14 [Vitamin D] Ferrous Fumarate [Iron] 65 mg PO DAILY 04/16/13 10/10/14 Fluticasone [Flonase] 50 mcg NS TPN/PPN 04/16/13 10/10/14 Ipratropium/Albuterol Inhaler 2 puffs INH QID 04/16/13 10/10/14 [Combivent Inhaler] Lysine [l-Lysine] 500 mg PO PRN 04/16/13 10/10/14 Multivitamin [Multi-Vitamin Daily] 1 each PO DAILY 04/16/13 10/10/14 Warfarin Sodium 10 mg PO DAILY 02/02/14 10/10/14 Epinephrine [Epipen 2-Cortez] 0.3 mg IM ONCE PRN #2 unit 05/11/14 10/10/14 Allopurinol 300 mg PO DAILY 10/10/14 10/10/14 Budesonide [Pulmicort Flexhaler] 2 puffs BID 10/10/14 10/10/14 Cetirizine [ZyrTEC] 10 mg DAILY 10/10/14 10/10/14 Nitrofurantoin [Macrobid] 100 mg PO BID #10 capsule 09/30/17 Promethazine [Phenergan] 25 - 50 mg PO Q6H PRN #10 tab 09/30/17 predniSONE [Prednisone] 40 mg PO DAILY 5 Days tablet 05/27/18 - Allergies Allergies/Adverse Reactions: Allergies Allergy/AdvReac Type Severity Reaction Status Date / Time acetaminophen [From Vicodin] Allergy Hives Verified 08/28/18 19:35 ciprofloxacin [From Cipro] Allergy Hives Verified 08/28/18 19:35 ciprofloxacin HCl * Allergy Hives Verified 08/28/18 19:35 [From Cipro] hydrocodone bitartrate * Allergy Hives Verified 08/28/18 19:35 [From Vicodin] macadamia nut oil Allergy Anaphylaxis Verified 08/28/18 19:35 meperidine HCl * Allergy Emesis Verified 08/28/18 19:35 [From Demerol] NSAIDS (Non-Steroidal Allergy Unknown Verified 08/28/18 19:35 Anti-Inflamma shrimp Allergy Anaphylaxis Verified 08/28/18 19:35 sunflower seed Allergy Edema Verified 08/28/18 19:35 clarithromycin [From Biaxin] AdvReac Intermediate diarrhea Verified 08/28/18 19:35 Review of Systems - Constitutional Constitutional: reports: Fatigue. denies: Fever, Chills, Malaise, Diaphoresis, Night sweats, Weight loss - Eyes Eyes: reports: Blurred vision. denies: Pain, Irritation, Amaurosis - Ears, Nose & Throat Ears, Nose & Throat: reports: Hearing loss. denies: Ear pain, Tinnitus, Vertigo - Cardiovascular Cariovascular: reports: Irregular heart rate, Palpitations, Chest pain. denies: Lightheadedness, Syncope, Exertional dyspnea, Decr. exercise tolerance - Respiratory Respiratory: reports: Wheezing (controlled with dulera bid, uses combivent before exercise and rarely prn). denies: Cough, Sputum production, Snoring, SOB at rest, SOB with exertion, Apnea - Gastrointestinal Gastrointestinal: reports: Reflux/heartburn (better since bypass). denies: Abdominal pain, Abdominal distention, Constipation, Diarrhea, Change in bowel habits - Genitourinary Genitourinary: reports: Frequency, Hematuria, Flank pain. denies: Dysuria, Urgency, Incontinence, Nocturia - Musculoskeletal Musculoskeletal: reports: Muscle pain, Back pain, Stiffness, Gout. denies: Joint pain, Joint swelling - Integumentary Integumentary: denies: Rash, Pruritis, Lesions - Neurological Neurological: reports: Numbness. denies: General weakness, Focal weakness, Headache, Dizziness, Memory problems, Pre-existing deficit, Abnormal gait, Seizures - Psychiatric Psychiatric: reports: Anxiety. denies: Depression, Suicidal, Delusions, Hallucinations - Endocrine Endocrine: denies: Polyuria, Polydypsia, Polyphagia - Hematologic/Lymphatic Hematologic/Lymphatic: denies: Anemia, Bruising, Petechiae Prior Level of Functionality: Independent with activities of daily living. Lives in her own home with her and a son and a niece. 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 Cleans house. Drives. Place bills. Does not use any durable medical equipment. Exam - Vital Signs Reviewed Vital Signs: Yes Vital Signs: Vital Signs x48h Temp Pulse Resp BP Pulse Ox 08/28/18 20:32 82 14 140/82 H 97 08/28/18 19:25 36.8 C 93 18 154/73 H 99 - Physical Exam General Appearance: positive: No acute distress, Alert, Other (Pleasant morbidly obese white female) Eyes Bilateral: positive: PERRL, EOMI ENT: positive: Pharynx nml Neck: positive: No JVD. negative: Stiff neck, Carotid bruit Respiratory: positive: Chest non-tender, No respiratory distress. negative: Wheezes, Rales, Rhonchi Cardiovascular: positive: Regular rate & rhythm (Alternating with irregular rate and rhythm during her stay in the ER). negative: Systolic murmur, Gallop/S4, Friction rub Peripheral Pulses: positive: 1+ Abdomen: positive: Non-tender, No organomegaly, Nml bowel sounds, No distention, Other Extremities: positive: Non-tender, Full ROM, Other (She has bilateral vertical knee scars from previous knee replacements. She wears a stocking with elastic top that brings her foot back at night for plantar fasciitis. The elastic top i s starting to begin to the muscles and give it a permanent indentation just below her kneecap and above her calf and irritates her varicose veins) Neurologic/Psychiatric: positive: Oriented x3, CN's nml (2-12), Motor nml, Sensation nml Reflexes: Bicep (R): 1+, Bicep (L): 1+, Knee (R): 1+, Knee (L): 1+, Ankle (R): 0, Ankle (L): 0 Babinski Reflex: Right: Down, Left: Down Conclusion/Plan - Problem List (1) Chest pain Conclusion/Plan: In a patient who has cardiac risk factors for arteriosclerosis. Stress test was negative a year ago. Status post ablation for A. fib. Her chest pain is not in relation to her A. fib. Not necessarily related to exertion either. Plan: Place in observation Rule out ME with serial cardiac enzymes Most likely can return to see her hypoid gear generator or her PCP to get an outpatient stress test Statin and aspirin for tonight Her medication list is not correct. It has not been edited by ER nursing. Pharmacy to reconcile in the morning. Qualifiers: Chest pain type: unspecified Qualified Code(s): R07.9 - Chest pain, unspecified (2) Hypertension Conclusion/Plan: Was able to come off hypertensive medications when she lost weight. In the emergency room she has been in the 140s-150s systolic. See how she does overnight. Plan: After observation see if she may need medications in the outpatient setting Qualifiers: Hypertension type: essential hypertension Qualified Code(s): I10 - Essential (primary) hypertension (3) Hypokalemia Conclusion/Plan: Supplement p.o. Recheck in a.m. (4) Intermittent atrial fibrillation Conclusion/Plan: Documented on telemetry this admission. She goes in and out of A. fib and alternates between that and sinus. Required 1 dose of beta-justin to bring her rate down. Now rate control. She does not know when she can get into see her hypoid gear generator or her primary care provider. But of the anticoagulants offered including Coumadin Xarelto and Pradaxa as she would prefer Coumadin. She would take 7.5 mg once a day for 6 days out of the week and 10 mg 1 day out of the week. Plan: 10 mg Coumadin tonight 7.5 mg p.o. nightly Will need frequent INR through PCP office. Will need to be seen by September 04. - Lab Results Fish Bones: 08/28/18 19:45 08/28/18 19:45 - Diagnostic Imaging Results Diagnostic Imaging Results: positive: Final report reviewed Diagnostic Imaging Results Comments: Normal chest x-ray - EKG Results EKG Interpreted Independently: No Core Measures - Anticipated LOS I expect patient to be DC'd or transferred within 96 hours.: Yes - DVT/VTE - Prophylaxis VTE/DVT Device ordered at admit?: Yes
[2018-08-28] MEDS ORDERED: ACETAMINOPHEN 325 MG TABLET PO PRN (22:43)
[2018-08-28] MEDS ORDERED: HYDROcod/ACETAM 5/325 MG TABLET PO PRN (22:43)
[2018-08-28] MEDS ORDERED: ONDANSETRON ODT 4 MG TABLET TL PRN (22:43)
[2018-08-28] MEDS ORDERED: ONDANSETRON 4 MG/2 ML VIAL IVP PRN (22:43)
[2018-08-28] MEDS ORDERED: SODIUM CHLORIDE FLUSH 0.9% 10 ML SYRINGE IVP PRN (22:43)
[2018-08-28] MEDS ORDERED: NITROGLYCERIN SL 0.4 MG TABLET SL PRN (22:46)
[2018-08-29] MEDS: SODIUM CHLORIDE FLUSH 0.9% 10 ML SYRINGE IVP SCH ×2 (00:53→08:52)
[2018-08-29 01:03] LABS: INR 1.1 (0.8-1.2); PT - PROTHROMBIN TIME 12.4 secs (9.9-12.6)
[2018-08-29] MEDS ORDERED: WARFARIN 5 MG TABLET PO SCH (01:15)
[2018-08-29 07:01] LABS: BUN - BLOOD UREA NITROGEN 16 mg/dL (6-20); CALCIUM 8.9 mg/dL (8.5-10.3); CARBON DIOXIDE - CO2 27 mmol/L (21-32); CHLORIDE 104 mmol/L (101-111); CHOL/HDL RATIO 2.7 (<4.4); CHOLESTEROL 146 mg/dL; CREATININE 0.9 mg/dL (0.4-1.0); GFR - MDRD 63 (>89); GLUCOSE 98 mg/dL (70-100); HDL CHOLESTEROL 54 mg/dL; LDL CHOLESTEROL,CALCULATED 81 mg/dL; LDL/HDL RATIO 1.5 (<4.4); SODIUM 137 mmol/L (135-145); VLDL CHOLESTEROL 11 mg/dL
[2018-08-29 07:49] VITALS: BP 108/60
[2018-08-29] MEDS ORDERED: POLYETHYLENE GLYCOL 3350 17 GM PACKET PO SCH (09:00)
--- NOTE | 2018-08-29 09:30 | Discharge Plan ---
Discharge Plan Disposition: 01 Home, Self Care Condition: Good Prescriptions: Apixaban [Eliquis] 5 mg ORAL BID #60 tablet Activity Restrictions: No Restrictions Shower Restrictions: No Driving Restrictions: No Weight Bearing: Full Weight Instruction Topics: Apixaban oral tablets, Heart Attack Warning Signs Additional Instructions or Follow Up instructions: You were admitted for chest pain, and all of the testing that you underwent, was negative for acute myocardial infarction. Since you were witnessed as going into atrial fibrillation, it is recommended that you start on an anticoagulant, which was sent to your pharmacy. Your mid, upper back discomfort remained upon discharge, but it is likely not cardiac in nature. Please see your PCP within one week. No Smoking: If you smoke, Please STOP! Call for help. Follow-up with: Syl Le MD [Primary Care Provider] -
--- NOTE | 2018-08-29 09:30 | DISCHARGE SUMMARY ---
Discharge Summary Admit Date: 08/28/18 Discharge Date: 08/29/18 Discharging Provider: JOHN Powers Primary Care Provider: Rodney Le Code Status: Attempt Resuscitation Condition at Discharge: Good Discharge Disposition: 01 Home, Self Care - DIAGNOSES Admission Diagnoses: Chest pain, unspecified (R07.9) Essential (primary) hypertension (I10) Hypokalemia (E87.6) Paroxysmal atrial fibrillation (I48.0) Discharge Diagnoses with Status of Each Condition: Chest pain (R07.9) resolved. All testing negative for this observation stay. Atrial fibrillation (I48.91) new finding, post cardiac ablation since November 11 018. Started on Eliquis. Back pain (M54.9) acute on chronic, patient admits to recently resuming s wimming. PHILLIP on CPAP (G47.33) chronic, stable. Hypertension (I10) chronic, stable. Hypokalemia (E87.6) resolved. Pulmonary hypertension (I27.20) preliminary echo results, stable. Patient seems compliant with CPAP use. Obesity (E66.9) chronic, stable. Fibromyalgia (M79.7) chronic, stable. - HPI History of Present Illness: She is a 62-year-old female who is cardiac risk factors include hypertension, diet-controlled diabetes, hyperlipidemia and presents with intermittent chest pain today. She had gastric bypass surgery in 2012, and with the loss of all the weight has managed to come off all of her medications for diabetes and hypertension and hyperlipidemia. Her cardiac history dates to paroxysmal atrial fibrillation in 2012. She finally had ablation earlier this year but still goes in and out of atrial fibrillation. She is not on anticoagulation at her request according to review of the cardiology notes in [facility]. And she has been intolerant of antiarrhythmic such as flecainide. Because of a family history of coronary artery disease and her risk of coronary artery disease a stress test was done in February 2017. She had normal left ventricular wall thickening. No segmental wall motion abnormalities. No transient ischemic dilation. Ejection fraction was 66%. Normal distribution of activity of the tracer in the right an d left myocardium with no fixed or reversible perfusion defects. As such when she underwent her ablation in November [address] [facility]. CT angiogram was done to look at her venous anatomy November 2017 and was normal. Echo echocardiogram November 2017 showed an ejection fraction of 60-65%, normal wall motion, and no significant valvular heart disease. The ablation was performed November 23, 2017. An intracardiac echo showed no clot. She was seen in follow-up February 2018. At that time she had no cardiac issues and her EKG showed sinus rhythm. She was only on beta blockade, intolerant and intolerant of flecainide. She wanted to stop anticoagulation. As such that was stopped. Today she developed a sensation of a rapid heart rate with central chest pain that radiated to the back. No nausea, diaphoresis, jaw pain. No relation to exertion. Present at rest. She came to the hospital to make sure she did not have anything nefarious going on. While she was in A. fib, she did convert to sinus on her own. This was after IV Lopressor. In her ER telemetry following, she was in and out of A. fib. The A. fib was not related to her chest pain. As such because of her risk factors, she is now placed in observation for rule out PR. - HOSPITAL COURSE Hospital Course: The patient was admitted to observation for a chest pain rule out work up, including EKGs, tele, serial troponins, and an echocardiogram. All of which are negative. Her original chest pain resolved, and her mid-upper back pain continued, but she later admitted to resuming her swimming class, and is found to have profound kyphosis on exam. She was started on Eliquis on discharge with her recurrent atrial fibrillation which was noted in the ED and given IV met oprolol. She was medically stable and discharged home with her . - ALLERGIES Allergies/Adverse Reactions: Allergies Allergy/AdvReac Type Severity Reaction Status Date / Time acetaminophen [From Vicodin] Allergy Hives Verified 08/28/18 19:35 ciprofloxacin [From Cipro] Allergy Hives Verified 08/28/18 19:35 ciprofloxacin HCl * Allergy Hives Verified 08/28/18 19:35 [From Cipro] hydrocodone bitartrate * Allergy Hives Verified 08/28/18 19:35 [From Vicodin] macadamia nut oil Allergy Anaphylaxis Verified 08/28/18 19:35 meperidine HCl * Allergy Emesis Verified 08/28/18 19:35 [From Demerol] NSAIDS (Non-Steroidal Allergy Unknown Verified 08/28/18 19:35 Anti-Inflamma shrimp Allergy Anaphylaxis Verified 08/28/18 19:35 sunflower seed Allergy Edema Verified 08/28/18 19:35 clarithromycin [From Biaxin] AdvReac Intermediate diarrhea Verified 08/28/18 19:35 - MEDICATIONS Home Medications: Ambulatory Orders Medication Instructions Recorded Confirmed Furosemide [Lasix] 80 mg PO DAILY 04/15/13 08/29/18 Potassium Chloride 20 - 40 meq PO TID 04/15/13 08/29/18 Cholecalciferol (Vitamin D3) 1,000 unit PO DAILY 04/16/13 08/29/18 [Vitamin D] Ferrous Fumarate [Iron] 65 mg PO DAILY 04/16/13 08/29/18 Fluticasone [Flonase] 50 mcg NS TPN/PPN PRN 04/16/13 08/29/18 Lysine [l-Lysine] 500 mg PO DAILY 04/16/13 08/29/18 Multivitamin [Multi-Vitamin Daily] 1 each PO DAILY 04/16/13 08/29/18 Epinephrine [Epipen 2-Cortez] 0.3 mg IM ONCE PRN #2 unit 05/11/14 08/29/18 Allopurinol 300 mg PO Q48H 10/10/14 08/29/18 Cetirizine [ZyrTEC] 10 mg PO DAILY 10/10/14 08/29/18 Allopurinol 600 mg PO Q48H 08/29/18 08/29/18 Amox/Clav 875/125 [Augmentin 1 tab PO Q12H 08/29/18 08/29/18 875/125] Apixaban [Eliquis] 5 mg ORAL BID #60 tablet 08/29/18 Bisoprolol Fumarate 0.5 tab PO PRN PRN 08/29/18 08/29/18 Calcium Carbonate/Vitamin D3 1 tab PO DAILY 08/29/18 08/29/18 [Calcium 600-Vit D3 800 Tablet] Chlorhexidine Gluconate 15 ml PO BID 08/29/18 08/29/18 Clotrimazole/Betamethasone Dip 1 applic TOP BID PRN 08/29/18 08/29/18 [Clotrimazole-Betamethasone Lot] Ipratropium/Albuterol [Combivent 4 gm IH PRN PRN 08/29/18 08/29/18 Respimat] Mometasone/Formoterol [Dulera 200 1 - 2 puffs PO BID 08/29/18 08/29/18 Mcg/5 Mcg Inhaler] - PHYSICAL EXAM AT DISCHARGE General Appearance: positive: No acute distress, Alert Eyes Bilateral: positive: Normal inspection, PERRL ENT: positive: Pharyngeal erythema, Oral lesions (Left lower teeth with redness, on current treatment for gingivitis), Dry mucous membranes Neck: positive: Thyroid nml, No JVD, Lymphadenopathy (R), Lymphadenopathy (L) Respiratory: positive: Chest non-tender, No respiratory distress, Breath sounds nml Cardiovascular: positive: Regular rate & rhythm, No gallop, Systolic murmur Peripheral Pulses: positive: 2+ Abdomen: positive: Non-tender, Nml bowel sounds, Other (obese, soft) Back: positive: Nml inspection, Other (profound kyphosis) Skin: positive: No rash, Warm, Dry Extremities: positive: Non-tender, Pedal edema (chronic, BLE), Joint swelling Neurologic/Psychiatric: positive: Oriented x3, CN's nml (2-12), Motor nml, Sensation nml, Depressed mood/affect Reflexes: Bicep (R): 3+, Bicep (L): 3+ - LABS Result Diagrams: 08/28/18 19:45 08/29/18 06:31 - DIAGNOSTIC IMAGING Diagnostic Imaging Results: Final report reviewed - FOLLOW UP Follow Up: Disposition: 01 Home, Self Care Condition: Good Prescriptions: Apixaban [Eliquis] 5 mg ORAL BID #60 tablet Instruction Topics: Apixaban oral tablets, Heart Attack Warning Signs Additional Instructions or Follow Up instructions: You were admitted for chest pain, and all of the testing that you underwent, was negative for acute myocardial infarction. Since you were witnessed as going into atrial fibrillation, it is recommended that you start on an anticoagulant, which was sent to your pharmacy. Your mid, upper back discomfort remained upon discharge, but it is likely not cardiac in nature. Please see your PCP within one week. - TIME SPENT Time Spent in Discharge (Minutes): 55
--- NOTE | 2018-08-29 15:57 | ED Physician Documentation ---
PD HPI CHEST PAIN - Stated complaint Stated Complaint: CP - Chief complaint Chief Complaint: Cardiac Review of Systems Ten Systems: 10 systems reviewed and negative Constitutional: denies: Fever, Chills Cardiac: reports: Chest pain / pressure, Palpitations. denies: Pedal edema, Calf pain Respiratory: denies: Dyspnea, Cough GI: denies: Abdominal Pain Musculoskeletal: reports: Back pain. denies: Neck pain PD PAST MEDICAL HISTORY - Past Medical History Past Medical History: Yes Cardiovascular: Hypertension, High cholesterol, Atrial fibrillation Respiratory: Asthma, Sleep apnea Neuro: Peripheral neuropathy Endocrine/Autoimmune: Type 2 diabetes GI: GERD, Hiatal hernia, Colon polyps, Hemorrhoids, Diverticulitis, Cholelit hiasis, Other PROJECT PROGRAM MANAGER: Fibroids (1999) : Retention, Kidney stones HEENT: Chronic sinusitis Psych: Anxiety, Panic attacks Musculoskeletal: Osteoarthritis, Fibromyalgia, Gout Derm: Rosacea Other Past Medical History: morbid obesity with Olivia-en-Y 06/2013 - Past Surgical History Past Surgical History: Yes General: Cholecystectomy, Gastric surgery Ortho: Knee replacement /PROJECT PROGRAM MANAGER: Hysterectomy Cardiovascular: Other - Present Medications Home Medications: Ambulatory Orders Medication Instructions Recorded Confirmed Furosemide [Lasix] 80 mg PO DAILY 04/15/13 08/29/18 Potassium Chloride 20 - 40 meq PO TID 04/15/13 08/29/18 Cholecalciferol (Vitamin D3) 1,000 unit PO DAILY 04/16/13 08/29/18 [Vitamin D] Ferrous Fumarate [Iron] 65 mg PO DAILY 04/16/13 08/29/18 Fluticasone [Flonase] 50 mcg NS TPN/PPN PRN 04/16/13 08/29/18 Lysine [l-Lysine] 500 mg PO DAILY 04/16/13 08/29/18 Multivitamin [Multi-Vitamin Daily] 1 each PO DAILY 04/16/13 08/29/18 Epinephrine [Epipen 2-Cortez] 0.3 mg IM ONCE PRN #2 unit 05/11/14 08/29/18 Allopurinol 300 mg PO Q48H 10/10/14 08/29/18 Cetirizine [ZyrTEC] 10 mg PO DAILY 10/10/14 08/29/18 Allopurinol 600 mg PO Q48H 08/29/18 08/29/18 Amox/Clav 875/125 [Augmentin 1 tab PO Q12H 08/29/18 08/29/18 875/125] Apixaban [Eliquis] 5 mg ORAL BID #60 tablet 08/29/18 Bisoprolol Fumarate 0.5 tab PO PRN PRN 08/29/18 08/29/18 Calcium Carbonate/Vitamin D3 1 tab PO DAILY 08/29/18 08/29/18 [Calcium 600-Vit D3 800 Tablet] Chlorhexidine Gluconate 15 ml PO BID 08/29/18 08/29/18 Clotrimazole/Betamethasone Dip 1 applic TOP BID PRN 08/29/18 08/29/18 [Clotrimazole-Betamethasone Lot] Ipratropium/Albuterol [Combivent 4 gm IH PRN PRN 08/29/18 08/29/18 Respimat] Mometasone/Formoterol [Dulera 200 1 - 2 puffs PO BID 08/29/18 08/29/18 Mcg/5 Mcg Inhaler] - Allergies Allergies/Adverse Reactions: Allergies Allergy/AdvReac Type Severity Reaction Status Date / Time acetaminophen [From Vicodin] Allergy Hives Verified 08/28/18 19:35 ciprofloxacin [From Cipro] Allergy Hives Verified 08/28/18 19:35 ciprofloxacin HCl * Allergy Hives Verified 08/28/18 19:35 [From Cipro] hydrocodone bitartrate * Allergy Hives Verified 08/28/18 19:35 [From Vicodin] macadamia nut oil Allergy Anaphylaxis Verified 08/28/18 19:35 meperidine HCl * Allergy Emesis Verified 08/28/18 19:35 [From Demerol] NSAIDS (Non-Steroidal Allergy Unknown Verified 08/28/18 19:35 Anti-Inflamma shrimp Allergy Anaphylaxis Verified 08/28/18 19:35 sunflower seed Allergy Edema Verified 08/28/18 19:35 clarithromycin [From Biaxin] AdvReac Intermediate diarrhea Verified 08/28/18 19:35 - Social History Does the pt smoke?: No Smoking Status: Never smoker Does the pt drink ETOH?: No Does the pt have substance abuse?: No - Immunizations Immunizations are current?: No Immunizations: TDAP >10years/unknown, Other immun current - POLST Patient has POLST: No POLST Status: Full Code Results - Vitals Vitals: Vital Signs - 24 hr 08/28/18 08/28/18 08/28/18 19:25 20:32 22:00 Temperature 36.8 C Heart Rate 93 82 72 Respiratory 18 14 15 Rate Blood Pressure 154/73 H 140/82 H 134/66 H O2 Saturation 99 97 100 Oxygen O2 Source Room air - Labs Labs: Laboratory Tests 08/28/18 08/28/18 08/28/18 19:40 19:45 19:45 WBC 9.4 RBC 4.78 Hgb 14.1 Hct 42.7 MCV 89.4 MCH 29.4 MCHC 32.9 RDW 13.9 Plt Count 252 MPV 9.0 Neut # (Auto) 6.5 Lymph # (Auto) 2.1 Perry # (Auto) 0.6 Eos # (Auto) 0.2 Baso # (Auto) 0.0 Absolute Nucleated RBC 0.00 Nucleated RBC % 0.0 PT INR Sodium 137 Potassium 3.4 L Chloride 105 Carbon Dioxide 26 Anion Gap 6.0 BUN 19 Creatinine 0.9 Estimated GFR (MDRD) 63 L Glucose 106 H Calcium 8.7 Total Bilirubin 0.7 AST 28 ALT 13 Alkaline Phosphatase 129 H Troponin I Total Protein 7.9 Albumin 4.3 Globulin 3.6 Albumin/Globulin Ratio 1.2 Lipase 31 Urine Color LIGHT YELLOW Urine Clarity CLEAR Urine pH 6.0 Ur Specific [place] <=1.005 Urine Protein NEGATIVE Urine Glucose (UA) NEGATIVE Urine Ketones NEGATIVE Urine Occult Blood NEGATIVE Urine Nitrite NEGATIVE Urine Bilirubin NEGATIVE Urine Urobilinogen 0.2 (NORMAL) Ur Leukocyte Esterase NEGATIVE Ur Microscopic Review NOT INDICATED Urine Culture Comments NOT INDICATED 08/28/18 08/28/18 19:45 19:45 WBC RBC Hgb Hct MCV MCH MCHC RDW Plt Count MPV Neut # (Auto) Lymph # (Auto) Perry # (Auto) Eos # (Auto) Baso # (Auto) Absolute Nucleated RBC Nucleated RBC % PT 12.4 INR 1.1 Sodium Potassium Chloride Carbon Dioxide Anion Gap BUN Creatinine Estimated GFR (MDRD) Glucose Calcium Total Bilirubin AST ALT Alkaline Phosphatase Troponin I < 0.04 Total Protein Albumin Globulin Albumin/Globulin Ratio Lipase Urine Color Urine Clarity Urine pH Ur Specific [place] Urine Protein Urine Glucose (UA) Urine Ketones Urine Occult Blood Urine Nitrite Urine Bilirubin Urine Urobilinogen Ur Leukocyte Esterase Ur Microscopic Review Urine Culture Comments Departure - Departure Disposition: ED Place in Observation Clinical Impression: Chest pain Qualifiers: Chest pain type: unspecified Qualified Code(s): R07.9 - Chest pain, unspecified Atrial fibrillation Qualifiers: Atrial fibrillation type: paroxysmal Qualified Code(s): I48.0 - Paroxysmal atrial fibrillation Condition: Good Discharge Date/Time: 08/28/18 23:09
== END 2018-08-29 14:36 | disposition home or self-care (01) ==
LOC: ED 19:21 → OBS 22:43
PROVIDERS: ADMIT Specialist; ATTEND Nurse Practitioner
DX: R07.9 Chest pain, unspecified (principal); I10 Essential (primary) hypertension; E87.6 Hypokalemia; I48.0 Paroxysmal atrial fibrillation; J45.909 Unspecified asthma, uncomplicated; J32.9 Chronic sinusitis, unspecified; G47.33 Obstructive sleep apnea (adult) (pediatric); I27.20 Pulmonary hypertension, unspecified; E66.01 Morbid (severe) obesity due to excess calories; Z68.41 Body mass index [BMI] 40.0-44.9, adult; E11.42 Type 2 diabetes mellitus with diabetic polyneuropathy; G89.29 Other chronic pain; M54.9 Dorsalgia, unspecified; M79.7 Fibromyalgia; M10.9 Gout, unspecified; M40.209 Unspecified kyphosis, site unspecified; M19.90 Unspecified osteoarthritis, unspecified site; K21.9 Gastro-esophageal reflux disease without esophagitis; K44.9 Diaphragmatic hernia without obstruction or gangrene; R33.9 Retention of urine, unspecified; F41.9 Anxiety disorder, unspecified; Z79.51 Long term (current) use of inhaled steroids; Z79.01 Long term (current) use of anticoagulants; Z79.52 Long term (current) use of systemic steroids; Z98.84 Bariatric surgery status; Z82.49 Family history of ischemic heart disease and other diseases of the circulatory system; Z87.442 Personal history of urinary calculi
CPT/HCPCS: 36415; 71045; 80048; 80053; 80061; 81003; 83690; 84484; 85025; 85610; 93005; 93306; 99284; A9270; G0378; 81001; 83721; 87086; 96374

== ENCOUNTER 2018-11-01 11:54 | Outpatient (CLI) | payer BC, OTHER ==
[2018-11-01 13:15] LABS: BUN - BLOOD UREA NITROGEN 16 mg/dL (6-20); CALCIUM 9.1 mg/dL (8.5-10.3); CARBON DIOXIDE - CO2 25 mmol/L (21-32); CHLORIDE 107 mmol/L (101-111); CHOL/HDL RATIO 2.6 (<4.4); CHOLESTEROL 197 mg/dL; CREATININE 0.8 mg/dL (0.4-1.0); GFR - MDRD 72 (>89); GLUCOSE 98 mg/dL (70-100); HDL CHOLESTEROL 76 mg/dL; LDL CHOLESTEROL,CALCULATED 101 mg/dL; LDL/HDL RATIO 1.3 (<4.4); SODIUM 141 mmol/L (135-145); VLDL CHOLESTEROL 20 mg/dL
== END 2018-11-01 11:55 | disposition home or self-care (01) ==
LOC: LAB 11:54
PROVIDERS: ATTEND Family Medicine
DX: I48.91 Unspecified atrial fibrillation (principal)
CPT/HCPCS: 36415; 80048; 80061; 83721; 84443

== ENCOUNTER 2018-11-01 14:46 | Outpatient (CLI) | payer BC, OTHER | END 2018-11-01 14:47 | disposition home or self-care (01) | LOC: SC 14:46 | PROVIDERS: ATTEND Nurse Practitioner Family | DX: G47.33 Obstructive sleep apnea (adult) (pediatric) (principal) | CPT/HCPCS: 99212; 99214 ==

== ENCOUNTER 2018-11-02 16:14 | Outpatient (CLI) | payer BC, OTHER ==
--- NOTE | 2018-11-06 09:11 | Mammography Report ---
Reason: SCREENING MAMMO Procedure Date: 11/02/2018 Accession Number: [id number] / [id number] Procedure: XIANG - Screening Mammo w/Buddy CPT Code: FULL RESULT: EXAM: Screening Mammo w/Buddy DATE: 11/02/2018 4:46 PM CLINICAL HISTORY: Screening encounter. Family history of breast cancer in the grandmother at the age of 55. TECHNIQUE: Bilateral CC and MLO views were obtained. A right laterally exaggerated CC view was obtained. COMPARISON: 06/20/2017 through 09/25/2012. FINDINGS: The breasts demonstrate scattered fibroglandular densities bilaterally. There are typically benign vascular calcifications. No suspicious masses, clustered microcalcifications, or regions of architectural distortion are identified. IMPRESSION: Benign findings RECOMMENDATION: Routine annual screening unless otherwise clinically indicated. BIRADS CATEGORY 2: Benign findings STANDARD QUALIFYING STATEMENTS: 1. This examination was not reviewed with the aid of Computer-Aided Detection (CAD). 2. A negative or benign imaging report should not preclude biopsy if clinically suspicious findings are present. 3. Dense breasts may obscure an underlying neoplasm. 4. This examination was reviewed with the aid of 3D breast imaging (tomosynthesis).
== END 2018-11-02 16:15 | disposition home or self-care (01) ==
LOC: DI 16:14
DX: Z12.31 Encounter for screening mammogram for malignant neoplasm of breast (principal); Z80.3 Family history of malignant neoplasm of breast
CPT/HCPCS: 77063; 77067

== ENCOUNTER 2019-03-21 09:36 | Outpatient (CLI) | payer BC, OTHER ==
[2019-03-21 10:35] LABS: CHOL/HDL RATIO 2.6 (<4.4); CHOLESTEROL 167 mg/dL; HDL CHOLESTEROL 65 mg/dL; LDL CHOLESTEROL,CALCULATED 92 mg/dL; LDL/HDL RATIO 1.4 (<4.4); VLDL CHOLESTEROL 10 mg/dL
== END 2019-03-21 09:37 | disposition home or self-care (01) ==
LOC: LAB 09:36
PROVIDERS: ATTEND Family Medicine
DX: I48.91 Unspecified atrial fibrillation (principal)
CPT/HCPCS: 36415; 80061; 83721; 84443

== ENCOUNTER 2019-08-15 15:08 | Outpatient (CLI) | payer BC, OTHER ==
[2019-08-15 16:12] VITALS: BP 120/80
--- NOTE | 2019-08-15 16:12 | SLEEP CARE CONSULTATION ---
Information from patient questionnaire entered by Nadia Proctor. I have reviewed and concur with the information entered by Nadia Proctor. This document represents the service I personally performed and the decisions made by me, Viridiana Michelle, RN, MSN, PHP ENGINEER. 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 (there was a delay in transfer process from [facility] / has only obtained filters) Mask style: Full face Mask brand: Respironics Backup mask available: Yes Last cushion change: 1 month ago Prior sleep studies: Yes CPAP Compliance Data - Data Reviewed with Patient Average duration of nightly device use: 7h 11m Compliance rate %: 100 Current pressure setting (cmH2O): 7-13 Humidity settin.5 Heated hose setting: unknown Average residual AHI: 0.8 Subjective Patient concerns: reports: dry mouth, nose, throat (recent the last month). denies: aerophagia, mask discomfort, air blowing in eyes, mask leak noise, condensation in mask/hose, nasal congestion, epistaxis Observed to snore while using device: No Current pressure setting perceived as: comfortable On therapy, patient: reports: sleeping better, awakening more refreshed, being more awake and alert during the day, more rested overall. denies: drowsiness while driving Initial [place] Sleepiness Scale score: 9 Current [place] Sleepiness Scale score: 6 Allergies and Home Medications Known drug allergies: Yes (see list ) Home medication list reviewed: Yes Allergy and home medication list: Medication Name (generic/name brand) Strength & Dosage Mometasone-Formoterol HFA Two puffs twice daily Ipratropium-Albuterol Mist One puff four times daily Bisoprolol Fumarate 5mg tab one daily as needed Furosemide 40mg tab one twice times daily Potassium Chloride 20meq tab one three times daily Allopurinol 300mg tab one twice daily EpiPen 2-Cortez Auto Injector 0.3mg use per directions Estradiol 0.0% Vaginal Cream 0.5Grams vaginally twice weekly Ferrous Sulfate 325mg ta one daily Magnesium Oxide 500mg cap one daily Eliquis 5mg tab one twice daily Calciumm Carbonate-Vit D3 600-800 Tab one twice daily Fluticasone 16gm suspension One spray eah nostril daily at bedtime Biotin [id number] cap two daily Vitamin B12 500mg tab one daily Lysine HCI 500mg tab one daily Multivitamin Cap one daily Vitamin D 1000unit one daily Flecanide Acetate 100mg tab one twice dailypROBIOTICS Magnesium 500mg tab 2-3 per week Ceftin Two daily Ceterizine 10mg cap one daily Allergy List [place] Shellfish Hydrocodone Neoerudube Ciprofloacin Clarithromycin [employer] [place] Nut Oil [place] Seeds Review of Systems Review of systems same as previous: Yes Physical Exam Blood Pressure: 120/80 Cuff size: long Heart Rate: 63 O2 Saturation: 98 Weight: 321 lb Weight change since last visit: gained 15 pounds Impression and Plan 1. Obstructive Sleep Apnea-Hypopnea Syndrome, severe, with good treatment compliance and good apnea control. On CPAP therapy, the patient has better sleep quality and is more rested overall. For oral dryness, she is advised to increase humidity to 6 and if no better reduce the heated hose slightly. She is not due for CPAP replacement until next summer. If continues to have difficulty getting supplies from new DME , she can transfer again. She is trying to lose her weight again that was gained while pool closed and change in diet. I discussed how apnea and CPAP pressure requirements will reduce with weight loss. Thus her current autoCPAP pressure should accommodate projected weight loss goals. Symptoms to report for further CPAP pressure adjustment discussed. . Patient's apnea severity and rationale for treatment to reduce apnea, improve sleep quality and reduce cardiovascular and cerebrovascular events was reviewed. I also reviewed the benefit of consistent device use of CPAP for arrhythmia, asthma * Continue CPAP pressure at 7cmH2O * Adjust humidity * Notify me if snoring with mask or feeling that the pressure is too much or too little * Attempt to lose weight * Return for follow up in 1 year , or sooner if concerns arise . I spent 100% of this 20 minute visit face to face with the patient with greater than 50% of this was spent time counseling the patient and coordination of care.
== END 2019-08-15 15:09 | disposition home or self-care (01) ==
LOC: SC 15:08
PROVIDERS: ATTEND Nurse Practitioner Family
DX: G47.33 Obstructive sleep apnea (adult) (pediatric) (principal)
CPT/HCPCS: 99212; 99213

== ENCOUNTER 2019-11-21 23:30 | Emergency (ER) | payer BC, OTHER ==
--- NOTE | 2019-11-21 23:35 | ED Physician Documentation ---
History of Present Illness - Stated complaint Stated Complaint: FEVER/GOODWIN - History obtained from History obtained from: Patient (the patient is a 64 y/o f who p/w cough, myalgias and fever for the last 1-2 days without headache, neck pain or rashes, she denies chest pain or shortness of breath. she reports a hx of a fib that is chronic and is managed medically with eliquis and rate and rhythm control medications. she reporst that she did receive a flu vaccine this year.) Review of Systems Constitutional: reports: Fever, Myalgias Eyes: reports: Reviewed and negative Ears: reports: Reviewed and negative Nose: reports: Reviewed and negative Throat: reports: Reviewed and negative Cardiac: reports: Reviewed and negative Respiratory: reports: Cough GI: reports: Reviewed and negative : reports: Reviewed and negative Skin: reports: Reviewed and negative Musculoskeletal: reports: Reviewed and negative Neurologic: reports: Reviewed and negative Psychiatric: reports: Reviewed and negative Endocrine: reports: Reviewed and negative Immunocompromised: reports: Reviewed and negative PD PAST MEDICAL HISTORY - Past Medical History Cardiovascular: Hypertension, High cholesterol, Atrial fibrillation Respiratory: Asthma, Sleep apnea Neuro: Peripheral neuropathy Endocrine/Autoimmune: Type 2 diabetes GI: GERD, Hiatal hernia, Colon polyps, Hemorrhoids, Diverticulitis, Cholelithiasis, Other RISK MANAGEMENT INTERN: Fibroids (1999) : Retention, Kidney stones HEENT: Chronic sinusitis Psych: Anxiety, Panic attacks Musculoskeletal: Osteoarthritis, Fibromyalgia, Gout Derm: Rosacea - Past Surgical History Past Surgical History: Yes General: Cholecystectomy, Gastric surgery Ortho: Knee replacement /RISK MANAGEMENT INTERN: Hysterectomy Cardiovascular: Other - Present Medications Home Medications: Ambulatory Orders Medication Instructions Recorded Confirmed Furosemide [Lasix] 80 mg PO DAILY 04/15/13 08/29/18 Potassium Chloride 20 - 40 meq PO TID 04/15/13 08/29/18 Cholecalciferol (Vitamin D3) 1,000 unit PO DAILY 04/16/13 08/29/18 [Vitamin D] Ferrous Fumarate [Iron] 65 mg PO DAILY 04/16/13 08/29/18 Fluticasone [Flonase] 50 mcg NS TPN/PPN PRN 04/16/13 08/29/18 Lysine [l-Lysine] 500 mg PO DAILY 04/16/13 08/29/18 Multivitamin [Multi-Vitamin Daily] 1 each PO DAILY 04/16/13 08/29/18 EPINEPHrine [Epipen 2-Cortez] 0.3 mg IM ONCE PRN #2 unit 05/11/14 08/29/18 Cetirizine [ZyrTEC] 10 mg PO DAILY 10/10/14 08/29/18 allopurinoL [Allopurinol] 300 mg PO Q48H 10/10/14 08/29/18 Amox/Clav 875/125 [Augmentin 1 tab PO Q12H 08/29/18 08/29/18 875/125] Apixaban [Eliquis] 5 mg ORAL BID #60 tablet 08/29/18 Bisoprolol Fumarate 0.5 tab PO PRN PRN 08/29/18 08/29/18 Calcium Carbonate/Vitamin D3 1 tab PO DAILY 08/29/18 08/29/18 [Calcium 600-Vit D3 800 Tablet] Chlorhexidine Gluconate 15 ml PO BID 08/29/18 08/29/18 Clotrimazole/Betamethasone Dip 1 applic TOP BID PRN 08/29/18 08/29/18 [Clotrimazole-Betamethasone Lot] Ipratropium/Albuterol [Combivent 4 gm IH PRN PRN 08/29/18 08/29/18 Respimat] Mometasone/Formoterol [Dulera 200 1 - 2 puffs PO BID 08/29/18 08/29/18 Mcg/5 Mcg Inhaler] allopurinoL [Allopurinol] 600 mg PO Q48H 08/29/18 08/29/18 Oseltamivir Phosphate [Tamiflu] 75 mg PO BID #10 capsule 11/22/19 - Allergies Allergies/Adverse Reactions: Allergies Allergy/AdvReac Type Severity Reaction Status Date / Time acetaminophen [From Vicodin] Allergy Hives Verified 11/21/19 23:44 ciprofloxacin [From Cipro] Allergy Hives Verified 11/21/19 23:44 ciprofloxacin HCl * Allergy Hives Verified 11/21/19 23:44 [From Cipro] hydrocodone bitartrate * Allergy Hives Verified 11/21/19 23:44 [From Vicodin] macadamia nut oil Allergy Anaphylaxis Verified 11/21/19 23:44 meperidine HCl * Allergy Emesis Verified 11/21/19 23:44 [From Demerol] NSAIDS (Non-Steroidal Allergy Unknown Verified 11/21/19 23:44 Anti-Inflamma shrimp Allergy Anaphylaxis Verified 11/21/19 23:44 sunflower seed Allergy Edema Verified 11/21/19 23:44 clarithromycin [From Biaxin] AdvReac Intermediate diarrhea Verified 11/21/19 23:44 - Social History Does the pt smoke?: No Smoking Status: Never smoker Does the pt drink ETOH?: No Does the pt have substance abuse?: No - Immunizations Immunizations are current?: No Immunizations: TDAP >10years/unknown, Other immun current - POLST Patient has POLST: No POLST Status: Full Code PD ED PE NORMAL - Vitals Vital signs reviewed: Yes - General General: Alert and oriented X 3, No acute distress, Well developed/nourished - HEENT HEENT: Atraumatic, PERRL, EOMI, Ears normal, Moist mucous membranes, Pharynx benign - Neck Neck: Supple, no meningeal sign, No JVD, No bruit - Cardiac Cardiac: RRR, No murmur, Strong equal pulses - Respiratory Respiratory: No respiratory distress, Clear bilaterally - Abdomen Abdomen: Normal bowel sounds, Soft, Non tender, Non distended - Back Back: No CVA TTP, No spinal TTP - Derm Derm: Normal color, Warm and dry, No rash - Extremities Extremities: No deformity - Neuro Neuro: Alert and oriented X 3, extra gang supervisor 2-12 intact, No motor deficit, No sensory deficit, Normal speech - Psych Psych: Normal mood, Normal affect Results - Vitals Vitals: Vital Signs - 24 hr 11/21/19 23:42 Temperature 37.4 C Heart Rate 94 Respiratory 18 Rate Blood Pressure 145/82 H O2 Saturation 95 Oxygen O2 Source Room air - Labs Labs: Laboratory Tests 11/21/19 11/22/19 23:50 00:10 Urine Color YELLOW Urine Clarity HAZY Urine pH 6.0 Ur Specific [place] 1.020 Urine Protein 100 H Urine Glucose (UA) NEGATIVE Urine Ketones 40 H Urine Occult Blood SMALL H Urine Nitrite NEGATIVE Urine Bilirubin NEGATIVE Urine Urobilinogen 0.2 (NORMAL) Ur Leukocyte Esterase MODERATE H Urine RBC 0-5 Urine WBC 11-25 H Ur Squamous Epith Cells MOD Squamous H Urine Bacteria Few Ur Microscopic Review INDICATED Urine Culture Comments NOT INDICATED Influenza A (Rapid) POSITIVE H Influenza B (Rapid) Negative Departure - Departure Clinical Impression: Influenza A Condition: Good Instructions: ED Flu, Medication: Tamiflu (Oseltamivir) Follow-Up: Syl Le MD [Primary Care Provider] - 11/22/19 Prescriptions: Oseltamivir Phosphate [Tamiflu] 75 mg PO BID #10 capsule
--- NOTE | 2019-11-22 00:17 | XRAY Report ---
Reason: cough,fever Procedure Date: 11/22/2019 Accession Number: [id number] / [id number] Procedure: XR - Chest 2 View X-Ray CPT Code: 87804 Final Report FULL RESULT: EXAM: CHEST RADIOGRAPHY EXAM DATE: 11/22/2019 12:08 AM. CLINICAL HISTORY: Cough, fever. COMPARISON: CHEST 1 VIEW 08/28/2018 8:07 PM. TECHNIQUE: 2 views. FINDINGS: Lungs/Pleura: No infiltrates. No pleural effusions or pneumothorax. Mediastinum: Heart and mediastinal contours are unremarkable. Osseous structures: No significant focal osseous lesions. IMPRESSION: No acute cardiopulmonary process identified radiographically. RADIA
[2019-11-22 00:25] LABS: GLUCOSE, URINE (UA) NEGATIVE (NEGATIVE); KETONES,URINE (UA) 40 mg/dL (NEGATIVE); LEUKOCYTE ESTERASE, URINE MODERATE (NEGATIVE); NITRITE,URINE NEGATIVE (NEGATIVE); OCCULT BLOOD,URINE SMALL (NEGATIVE); PROTEIN,URINE 100 mg/dL (NEGATIVE); UROBILINOGEN,URINE 0.2 (NORMAL) E.U./dL (NORMAL)
[2019-11-22] MEDS ORDERED: OSELTAMIVIR 75 MG CAPSULE PO STA (00:25)
[2019-11-22 00:32] LABS: BACTERIA,URINE Few /HPF (None Seen); BILIRUBIN,URINE NEGATIVE (NEGATIVE); CLARITY,URINE HAZY (CLEAR); ICTOTEST,URINE NEGATIVE; RBC,URINE 0-5 /HPF (0-5); SQUAMOUS EPITHELIAL CELL,UR MOD Squamous (<= Few)
[2019-11-22 00:49] VITALS: BP 108/57
== END 2019-11-22 00:49 | disposition home or self-care (01) ==
LOC: ED 23:30
DX: J10.1 Influenza due to other identified influenza virus with other respiratory manifestations (principal); I48.20 Chronic atrial fibrillation, unspecified; Z79.01 Long term (current) use of anticoagulants; I10 Essential (primary) hypertension; E11.42 Type 2 diabetes mellitus with diabetic polyneuropathy
CPT/HCPCS: 71046; 81001; 87275; 87276; 99284; A9270; 81003; 87086

== ENCOUNTER 2020-01-04 20:43 | Outpatient (CLI) | payer BC, OTHER | END 2020-01-04 20:44 | disposition home or self-care (01) | LOC: COV 20:43 | PROVIDERS: ATTEND Family Medicine | DX: R05 Cough (principal) ==

== ENCOUNTER 2020-01-28 19:18 | Outpatient (CLI) | payer BC, OTHER | END 2020-01-28 19:19 | disposition home or self-care (01) | LOC: COV 19:18 | PROVIDERS: ATTEND Family Medicine | DX: R50.9 Fever, unspecified (principal); R05 Cough; M79.10 Myalgia, unspecified site; R53.83 Other fatigue; J02.9 Acute pharyngitis, unspecified; R19.7 Diarrhea, unspecified | CPT/HCPCS: 81599 ==

== ENCOUNTER 2020-08-21 16:27 | Outpatient (CLI) | payer BC, OTHER | END 2020-08-21 16:28 | disposition home or self-care (01) | LOC: COV 16:27 | PROVIDERS: ATTEND Family Medicine | DX: R05 Cough (principal); M79.10 Myalgia, unspecified site; Z20.828 Contact with and (suspected) exposure to other viral communicable diseases ==

== ENCOUNTER 2020-09-03 13:42 | Outpatient (CLI) | payer BC, OTHER ==
--- NOTE | 2020-09-03 13:54 | SLEEP CARE CONSULTATION ---
Information from patient questionnaire entered by Padmini Cristina. I have reviewed and concur with the information entered by Padmini Cristina. This document represents the service I personally performed and the decisions made by , Rita Gunter ARNP. History of Present Illness Service Date and Time: 09/03/2020 1340 Previous diagnosis: Severe, Obstructive Sleep Apnea-Hypopnea Syndrome AHI: 40.4 (in 2013)(31 in 2007) Reason for follow up: annual (last seen 08/2019) Equipment type: CPAP Equipment obtained from: [employer] (getting supplies as needed, automated ordering works well) Mask style: Full face (Amarra View) Backup mask available: Yes (old mask) Last cushion change: 2 weeks ago Prior sleep studies: Yes Year and Where: [address] - [facility], 2007 - [facility] HPI additional information: SHOLA FELIPE was diagnosed to have severe, AHI 40.4, obstructive sleep apnea- hypopnea syndrome and returns via Telehealth visit today for CPAP therapy annual follow-up. Sleep Study - Results Prior sleep studies: Yes CPAP Compliance Data - Data Reviewed with Patient Average duration of nightly device use: 7 hr 18 min Compliance rate %: 100 (180 days) Current pressure setting (cmH2O): 7-13 Average residual AHI: 1.2 Central apnea: 0.4 Obstructive apnea: 0.5 Subjective Patient concerns: reports: dry mouth, nose, throat (once in a rare while, drinks water as needed). denies: aerophagia, mask discomfort, air blowing in eyes, mask leak noise, condensation in mask/hose, nasal congestion, epistaxis, other Observed to snore while using device: No Current pressure setting perceived as: comfortable On therapy, patient: reports: sleeping better, awakening more refreshed, being more awake and alert during the day, more rested overall. denies: drowsiness while driving Initial Sigurd Sleepiness Scale score: 9 (in 2009) Current Sigurd Sleepiness Scale score: 9 Allergies and Home Medications Drug allergies reviewed: Yes (see list in chart) Home medication list reviewed: Yes (no changes) Review of Systems Review of systems same as previous: Yes (no changes) Physical Exam Vital signs obtained and entered by: Telehealth visit to reduce exposure during Covid pandemic Height: 5 ft 9 in Impression and Plan 1. Obstructive Sleep Apnea-Hypopnea Syndrome, severe, with excellent treatment compliance and good apnea control. On CPAP therapy, the patient has better sleep quality and is more rested overall. The patients CPAP is over 5 years old and of reasonable use. Thus, the CPAP will be updated. A DWO prescription will be made. Compliance guidelines for new device and follow up discussed. Patient's apnea severity and rationale for treatment to reduce apnea, improve sleep quality and reduce cardiovascular and cerebrovascular events was reviewed. I also reviewed the benefit of consistent device use of CPAP for arrhythmia and asthma. * Continue auto CPAP pressure at 7-13 cmH2O * Notify me if snoring with mask or feeling that the pressure is too much or too little * Attempt to lose weight * Call this office if any problems using CPAP * Return for follow up in 1-2 months, or sooner if concerns arise Counseling Topics: Spare mask, Weight loss health impact Visit Type: Telehealth Video Video Type: Doximity Patient Location: Home Location of Provider: Office Patient agrees and consents to this telehealth visit type: Yes Time Spent with Patient (minutes): 16 Provider Statement: I spent 100% of the Telehealth Video Call with the patient with greater than 50% spent counseling the patient and coordination of care.
== END 2020-09-03 13:43 | disposition home or self-care (01) ==
LOC: SC 13:42
PROVIDERS: ATTEND Nurse Practitioner Family
DX: G47.33 Obstructive sleep apnea (adult) (pediatric) (principal)

== ENCOUNTER 2020-10-15 13:43 | Outpatient (CLI) | payer MEDICARE, OTHER ==
--- NOTE | 2020-10-15 14:20 | SLEEP CARE CONSULTATION ---
Information from patient questionnaire entered by Escobar Graham. I have reviewed and concur with the information entered by Escobar Graham. This document represents the service I personally performed and the decisions made by me, Rita Gunter ARNP. History of Present Illness Service Date and Time: 10/15/2020 1343 Previous diagnosis: Severe, Obstructive Sleep Apnea-Hypopnea Syndrome AHI: 40.4 (in 2013)(31 in 2007) Reason for follow up: other (6-week followup - Medicare compliance, need new Rx) Equipment type: CPAP Equipment obtained from: [employer] (getting supplies as needed, automated ordering works well) Mask style: Full face (Amarra View) Backup mask available: Yes (old mask) Last cushion change: 1 week ago Prior sleep studies: Yes Year and Where: 2013 - [facility], [address] [place] [address] Sleep HPI additional information: SHOLA FELIPE was diagnosed to have severe, AHI 40.4, obstructive sleep apnea- hypopnea syndrome and returned today for CPAP therapy medicare compliance follow-up. Sleep Study - Results Prior sleep studies: Yes Year and Where: 2013 - formerly [facility], [address] [place] [address] Sleep CPAP Compliance Data - Data Reviewed with Patient Average duration of nightly device use: 7 hours 2 minutes Compliance rate %: 100 Current pressure setting (cmH2O): 7-13 Average residual AHI: 1.1 Central apnea: 0.4 Obstructive apnea: 0.4 Subjective Missed days of use due to: reports: other (new puppy) Patient concerns: reports: dry mouth, nose, throat (now and then, humidity 5.5 is highest). denies: aerophagia, mask discomfort, air blowing in eyes, mask leak noise, condensation in mask/hose, nasal congestion, epistaxis, other Observed to snore while using device: No Current pressure setting perceived as: comfortable On therapy, patient: reports: sleeping better, awakening more refreshed, being more awake and alert during the day, more rested overall. denies: drowsiness while driving Initial Cheriton Sleepiness Scale score: 9 (in 2009) Current Cheriton Sleepiness Scale score: 10 Allergies and Home Medications Drug allergies reviewed: Yes (no changes) Home medication list reviewed: Yes (no changes) Review of Systems Review of systems same as previous: No (plantar fasciitis) Physical Exam Heart Rate: 55 O2 Saturation: 98 Height: 5 ft 9 in Weight: 310 lb Body Mass Index: 45.8 BMI Classification: Morbidly Obese Impression and Plan 1. Obstructive Sleep Apnea-Hypopnea Syndrome, severe, with excellent treatment compliance and excellent apnea control. On CPAP therapy, the patient has better sleep quality and is more rested overall. Patient does still get some mouth dryness. She has her humidity set at the highest setting without problems with condensation. Patient last updated her machine in 2013 and is in need of a new machine. She just changed to Medicare and they required a compliance appointment prior to covering new equipment. The patients CPAP is over 5 years old and of reasonable use. Thus, the CPAP will be updated. The new CPAPs also have a better humidity system which could assist control of patients dryness symptoms. A DWO prescription will be made. Compliance guidelines for new device and follow up discussed. Patient's apnea severity and rationale for treatment to reduce apnea, improve sleep quality and reduce cardiovascular and cerebrovascular events was reviewed. I also reviewed the benefit of consistent device use of CPAP for arrhythmia and asthma. * Continue auto CPAP pressure at 7-13 cmH2O * Update CPAP * Notify me if snoring with mask or feeling that the pressure is too much or too little * Attempt to lose weight * Call this office if any problems using CPAP * Return for follow a month after obtaining new machine, or sooner if concerns arise Counseling Topics: Spare mask, Weight loss health impact Visit Type: In Office Time Spent with Patient (minutes): 18 Provider Statement: I spent 100% of the Face to Face Visit with the patient with greater than 50% spent counseling the patient and coordination of care.
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
== END 2020-10-15 13:44 | disposition home or self-care (01) ==
LOC: SC 13:43
PROVIDERS: ATTEND Nurse Practitioner Family
DX: G47.33 Obstructive sleep apnea (adult) (pediatric) (principal); E66.01 Morbid (severe) obesity due to excess calories; Z68.42 Body mass index [BMI] 45.0-49.9, adult
CPT/HCPCS: 99213; G0463; 99212

== ENCOUNTER 2020-12-19 15:40 | Outpatient (CLI) | payer OTHER, MEDICARE ==
--- NOTE | 2020-12-19 15:51 | SLEEP CARE CONSULTATION ---
Information from patient questionnaire entered by Escobar Graham. I have reviewed and concur with the information entered by Escobar Graham. This document represents the service I personally performed and the decisions made by me, Rita Gunter ARNP. History of Present Illness Service Date and Time: 12/19/2020 1540 Previous diagnosis: Severe, Obstructive Sleep Apnea-Hypopnea Syndrome AHI: 40.4 (in 2013)(31 in 2007) Reason for follow up: first compliance after device update (11/11/20) Equipment type: CPAP Equipment obtained from: [employer] (getting supplies as needed, automated ordering works well) Mask style: Full face ([place]marra View) Backup mask available: Yes (old mask) Last cushion change: 1 week ago Prior sleep studies: Yes Year and Where: 2013 - [facility], 2007 - [facility] HPI additional information: SHOLA FELIPE was diagnosed to have severe, AHI 40.4, obstructive sleep apnea- hypopnea syndrome and returns via Telehealth visit today for CPAP therapy first compliance after updating device follow-up. CPAP Compliance Data - Data Reviewed with Patient Average duration of nightly device use: 7 h 31 min Compliance rate %: 100 Current pressure setting (cmH2O): 7-13 Average residual AHI: 0.7 Subjective Patient concerns: denies: aerophagia, mask discomfort, air blowing in eyes, mask leak noise, condensation in mask/hose, nasal congestion, dry mouth, nose, throat, epistaxis, other Observed to snore while using device: No (one night after her 2nd Covid shot, felt flulike; none since) Current pressure setting perceived as: comfortable On therapy, patient: reports: sleeping better, awakening more refreshed, being more awake and alert during the day, more rested overall. denies: drowsiness while driving Initial [place] Sleepiness Scale score: 9 (in 2009) Current [place] Sleepiness Scale score: 7 Allergies and Home Medications Home medication list reviewed: Yes (no new meds) Review of Systems Review of systems same as previous: Yes (no changes) Physical Exam Vital signs obtained and entered by: Telehealth visit to reduce exposure during Covid pandemic Height: 5 ft 9 in Impression and Plan 1. Obstructive Sleep Apnea-Hypopnea Syndrome, severe, with excellent treatment compliance and good apnea control. On CPAP therapy, the patient has better sleep quality and is more rested overall. She is very happy with her CPAP therapy and new machine. She has no issues or concerns with it's use. She has significant improvement of her apneas with CPAP. I advised patient to work on weight loss this year to improve her overall health. She voiced understanding and agreement. Patient's apnea severity and rationale for treatment to reduce apnea, improve sleep quality and reduce cardiovascular and cerebrovascular events was reviewed. I also reviewed the benefit of consistent device use of CPAP for arrhythmia and asthma. * Continue auto CPAP pressure at 7-13 cmH2O * Notify me if snoring with mask or feeling that the pressure is too much or too little * Attempt to lose weight * Call this office if any problems using CPAP * Return for follow up in 1 year, or sooner if concerns arise Counseling Topics: Spare mask, Weight loss health impact Visit Type: Telehealth Video Video Type: DANIELee Patient Location: Home Location of Provider: Office Time Spent with Patient (minutes): 14 Provider Statement: I spent 100% of the Telehealth Video Call with the patient with greater than 50% spent counseling the patient and coordination of care.
== END 2020-12-19 15:41 | disposition home or self-care (01) ==
LOC: SC 15:40
PROVIDERS: ATTEND Nurse Practitioner Family
DX: G47.33 Obstructive sleep apnea (adult) (pediatric) (principal)

== ENCOUNTER 2021-01-21 16:23 | Outpatient (CLI) | payer MEDICARE, OTHER ==
[2021-01-21 16:51] LABS: ALBUMIN/GLOBULIN RATIO 1.3 (1.0-2.2); BILIRUBIN,TOTAL 0.6 mg/dL (0.2-1.0); CALCIUM 9.6 mg/dL (8.5-10.3); CREATININE 0.8 mg/dL (0.4-1.0); POTASSIUM 3.9 mmol/L (3.5-5.0)
== END 2021-01-21 16:24 | disposition home or self-care (01) ==
LOC: LAB 16:23
PROVIDERS: ATTEND Internal Medicine Cardiovascular Disease
DX: I48.0 Paroxysmal atrial fibrillation (principal)
CPT/HCPCS: 36415; 80053

== ENCOUNTER 2021-04-07 14:39 | Outpatient (CLI) | payer OTHER, MEDICARE ==
--- NOTE | 2021-04-08 13:39 | Mammography Report ---
BILATERAL DIGITAL SCREENING MAMMOGRAM 3D/2D: 04/07/2021 CLINICAL: Routine screening. Comparison is made to exams dated: 11/02/2018 mammogram, 06/20/2017 mammogram, 03/14/2015 mammogram, 03/11 mammogram, and 09/25/2012 mammogram - [facility]. The tissue of both breast s is predominantly fatty. No significant masses, calcifications, or other findings are seen in either breast. There has been no significant interval change. IMPRESSION: NEGATIVE There is no mammographic evidence of malignancy. A 1 year screening mammogram is recommended. This exam was interpreted at Station ID: [id number]. NOTE: For mammograms, a report in lay terms will be sent to the patient. Approximately 15% of breast malignancies will not be visualized mammographically. In the management of a palpable breast mass, a negative mammogram must not discourage biopsy of a clinically suspicious lesion. Electronically Signed By: Guanaco Quintero M.D., jr/penrad:04/07/2021 17:13:54 ACR BI-RADS Category 1: Negative 3341F PARENCHYMAL PATTERN: (F) - The breast(s) demonstrate(s) diffuse fatty replacement. BI-RADS CATEGORY: (1) - 1 RECOMMENDATION: (ANNUAL) - Recommend routine annual screening mammography. [id number] 1 year screening LATERALITY: (B)
== END 2021-04-07 14:40 | disposition home or self-care (01) ==
LOC: DI 14:39
DX: Z12.31 Encounter for screening mammogram for malignant neoplasm of breast (principal)

== ENCOUNTER 2022-01-01 15:15 | Outpatient (CLI) | payer OTHER, MEDICARE ==
[2022-01-01 15:44] LABS: ALBUMIN 3.8 g/dL (3.2-5.5); ALBUMIN/GLOBULIN RATIO 1.2 (1.0-2.2); BILIRUBIN,TOTAL 0.6 mg/dL (0.2-1.0); CALCIUM 8.9 mg/dL (8.5-10.3); POTASSIUM 3.7 mmol/L (3.5-5.0); TOTAL PROTEIN 7.1 g/dL (6.7-8.2)
== END 2022-01-01 15:16 | disposition home or self-care (01) ==
LOC: LAB 15:15
PROVIDERS: ATTEND Physician Assistant
DX: I48.0 Paroxysmal atrial fibrillation (principal); Z51.81 Encounter for therapeutic drug level monitoring; Z79.899 Other long term (current) drug therapy
CPT/HCPCS: 36415; 80053

== ENCOUNTER 2022-01-25 02:09 | Emergency (ER) | payer OTHER, MEDICARE ==
--- NOTE | 2022-01-25 02:18 | ED Physician Documentation ---
PD HPI CHEST PAIN - Stated complaint Stated Complaint: CHEST PX - Chief complaint Chief Complaint: Cardiac - History obtained from History obtained from: Patient - History of Present Illness Timing - onset: Enter time (16:00), Today Timing - details: Abrupt onset Pain level now: 8 Quality: Pain Location: Other (epigastric) Radiation: Back Improved by: Nothing Worsened by: Palpation Associated symptoms: Nausea, Vomiting. No: Shortness of air, Diaphoresis, Feeling faint / dizzy, General Weakness, Palpitations, Cough Similar symptoms before: Has not had sx before Recently seen: Not recently seen - Additional information Additional information: at approximately 4 PM today, patient had sudden onset epigastric pain, sensation of something got caught (per patient), unclear if she was in the act of swallowing/had just swallowed food. She was eating at the time but she seems to recall it was a piece of licorice She subsequently had some difficulty with PO although has been able to take sips of liquids and even one of her PO medications [employer]. The discomfort persisted and at approximately 9 PM the epigastric pain began to radiate to the back and became more intense, associated with nausea and vomiting. She had gastric bypass 9 years ago Review of Systems Constitutional: reports: Reviewed and negative Cardiac: reports: Reviewed and negative Respiratory: reports: Reviewed and negative GI: reports: Abdominal Pain, Nausea, Vomiting. denies: Abdominal Swelling, Constipation, Diarrhea : denies: Dysuria, Frequency Musculoskeletal: reports: Back pain (epigastric pain radiates to the back) PD PAST MEDICAL HISTORY - Past Medical History Cardiovascular: Hypertension, High cholesterol, Atrial fibrillation Respiratory: Asthma, Sleep apnea Neuro: Peripheral neuropathy Endocrine/Autoimmune: Type 2 diabetes GI: GERD, Hiatal hernia, Colon polyps, Hemorrhoids, Diverticulitis, Cholelithiasis, Other KENO WRITER: Fibroids (2000) : Retention, Kidney stones HEENT: Chronic sinusitis Psych: Anxiety, Panic attacks Musculoskeletal: Osteoarthritis, Fibromyalgia, Gout Derm: Rosacea - Past Surgical History Past Surgical History: Yes General: Cholecystectomy, Gastric surgery Ortho: Knee replacement /KENO WRITER: Hysterectomy Cardiovascular: Other - Present Medications Home Medications: Ambulatory Orders Medication Instructions Recorded Confirmed Furosemide [Lasix] 80 mg PO DAILY 04/15/13 08/29/18 Potassium Chloride 20 - 40 meq PO TID 04/15/13 08/29/18 Cholecalciferol (Vitamin D3) 1,000 unit PO DAILY 04/16/13 08/29/18 [Vitamin D] Ferrous Fumarate [Iron] 65 mg PO DAILY 04/16/13 08/29/18 Fluticasone [Flonase] 50 mcg NS TPN/PPN PRN 04/16/13 08/29/18 Lysine [l-Lysine] 500 mg PO DAILY 04/16/13 08/29/18 Multivitamin [Multi-Vitamin Daily] 1 each PO DAILY 04/16/13 08/29/18 EPINEPHrine [Epipen 2-Cortez] 0.3 mg IM ONCE PRN #2 unit 05/11/14 08/29/18 Cetirizine [ZyrTEC] 10 mg PO DAILY 10/10/14 08/29/18 allopurinoL [Allopurinol] 300 mg PO Q48H 10/10/14 08/29/18 Amox/Clav 875/125 [Augmentin 1 tab PO Q12H 08/29/18 08/29/18 875/125 Tab] Apixaban [Eliquis] 5 mg ORAL BID #60 tablet 08/29/18 Bisoprolol Fumarate 0.5 tab PO PRN PRN 08/29/18 08/29/18 Calcium Carbonate/Vitamin D3 1 tab PO DAILY 08/29/18 08/29/18 [Calcium 600-Vit D3 800 Tablet] Chlorhexidine Gluconate 15 ml PO BID 08/29/18 08/29/18 Clotrimazole/Betamethasone Dip 1 applic TOP BID PRN 08/29/18 08/29/18 [Clotrimazole-Betamethasone Lot] Ipratropium/Albuterol [Combivent 4 gm IH PRN PRN 08/29/18 08/29/18 Respimat] Mometasone/Formoterol [Dulera 200 1 - 2 puffs PO BID 08/29/18 08/29/18 Mcg/5 Mcg Inhaler] allopurinoL [Allopurinol] 600 mg PO Q48H 08/29/18 08/29/18 Oseltamivir Phosphate [Tamiflu] 75 mg PO BID #10 capsule 11/22/19 - Allergies Allergies/Adverse Reactions: Allergies Allergy/AdvReac Type Severity Reaction Status Date / Time acetaminophen [From Vicodin] Allergy Hives Verified 01/25/22 02:20 ciprofloxacin [From Cipro] Allergy Hives Verified 01/25/22 02:20 ciprofloxacin HCl * Allergy Hives Verified 01/25/22 02:20 [From Cipro] hydrocodone bitartrate * Allergy Hives Verified 01/25/22 02:20 [From Vicodin] macadamia nut oil Allergy Anaphylaxis Verified 01/25/22 02:20 meperidine HCl * Allergy Emesis Verified 01/25/22 02:20 [From Demerol] NSAIDS (Non-Steroidal Allergy Unknown Verified 01/25/22 02:20 Anti-Inflamma shrimp Allergy Anaphylaxis Verified 01/25/22 02:20 sunflower seed Allergy Edema Verified 01/25/22 02:20 clarithromycin [From Biaxin] AdvReac Intermediate diarrhea Verified 01/25/22 02:20 - Social History Does the pt smoke?: No Smoking Status: Never smoker Does the pt drink ETOH?: No Does the pt have substance abuse?: No - Immunizations Immunizations are current?: No Immunizations: TDAP >10years/unknown, Other immun current - POLST Patient has POLST: No POLST Status: Full Code PD ED PE NORMAL - Vitals Vital signs reviewed: Yes - General General: Alert and oriented X 3, No acute distress, Other (morbidly obese female in mild/moderate painful distress at times during H+P) - HEENT HEENT: Moist mucous membranes - Cardiac Cardiac: RRR, No murmur - Respiratory Respiratory: No respiratory distress, Clear bilaterally - Abdomen Abdomen: Normal bowel sounds, Soft, Non distended, Other (mild TTP epigastrium without rebound or guarding) - Back Back: No CVA TTP - Derm Derm: Normal color, Warm and dry Results - Vitals Vitals: Oxygen O2 Source Room air - EKG (time done) No standard instances Rate: Rate (enter#) (70) Rhythm: NSR [place]: LAD, Anterior hemiblock Intervals: Normal CT QRS: LVH Ischemia: T wave inversion (borderline inferior T abnormalities (flat II, inverted III, aVF)) - Labs Labs: Laboratory Tests 01/25/22 01/25/22 01/25/22 02:34 02:34 02:34 WBC 9.5 RBC 4.40 Hgb 13.1 Hct 39.3 MCV 89.3 MCH 29.8 MCHC 33.3 RDW 14.1 Plt Count 210 MPV 11.0 H Neut # (Auto) 6.7 H Lymph # (Auto) 2.0 [place] # (Auto) 0.6 Eos # (Auto) 0.2 Baso # (Auto) 0.0 Absolute Nucleated RBC 0.00 Nucleated RBC % 0.0 Sodium 139 Potassium 3.4 L Chloride 104 Carbon Dioxide 24 Anion Gap 11.0 BUN 20 Creatinine 0.7 Estimated GFR (MDRD) 84 L Glucose 124 H Calcium 9.4 Total Bilirubin 0.6 AST 22 ALT 13 Alkaline Phosphatase 108 Troponin I High Sens 4.2 Total Protein 7.4 Albumin 3.9 Globulin 3.5 Albumin/Globulin Ratio 1.1 Lipase 30 - Rads (name of study) CT A/P with PO and IV contrast Radiology: Prelim report reviewed, See rad report PD MEDICAL DECISION MAKING - ED course Complexity details: reviewed results, re-evaluated patient, considered differe debbieial, d/w patient ED course: given the area of concern (epigastrium, arguably low chest although she has some TTP in epigastrium suggesting a GI etiology), an EKG and hs-cTn were performed and there are no concerning findings on EKG and hs-cTn is normal. She has h/o gastric bypass. She says she feels as though food might have become lodged in bottom of esophagus. She is swallowing secretions without difficulty and has been able to take a PO medication [employer]. Furthermore, she is able to drink an appreciable amount of the PO contrast, and the contrast is seen on CT to go through to small intestine (delay time after PO contrast was intentionally brief, as area of interest was upper GI tract and not appendix/colon, etc). Her blood tests have no remarkable/concerning findings nor are there concerning/diagnostic findings on CT. CT shows small sliding hiatal hernia, hepatic steatosis, and multiple bilateral renal lesions (per radiology reading). Results d/w patient including incidental findings for which I recommended she seek f/u , as further tests might be needed (at the discretion of her primary care provider), such as US to better characterize the renal les ions. Follow up would also be beneficial for reassessment of the presenting symptoms; recurrent or persistent epigastric discomfort might also warrant further testing, such as upper endoscopy. She is given protonix in ED. Gastritis/esophagitis remains on differential along with PUD. Departure - Departure Disposition: 01 Home, Self Care Clinical Impression: Epigastric pain Condition: Good Instructions: ED Epigastric Pain UKO Comments: As we discussed, the results of your tests tonight are unremarkable; the cause of your symptoms is not clear at this time. Your CT scan does not show any evidence of an obstruction (in the esophagus, stomach, small/large bowel). The contrast you drank passes through the esophagus to the stomach and into the small intestine. As we discussed , there was a small hiatal hernia noted on the CT scan, although you have indicated this is not a new finding. The CT scan also shows HEPATIC STEATOSIS (sometimes called "fatty liver" because it is based on an abnormally large amount of adipose (fat) tissue deposits in the liver. Sometimes the cause can be determined and addressed (such as excessive alcohol intake, certain prescription medications, large amount of lipids in the blood), and other times no cause is found. You should mention this finding to your doctor when you next see them. Also on the CT are lesions in both kidneys; the radiologist does not comment on whether these appear to be cysts (which tend to be benign), or masses/nodules (which would be more concerning). The radiologist wrote "hypoattenuating bilateral renal lesions. Consider ultrasound for better characterization". This is another finding that is coincident (would not be causing your symptoms), and that you should discuss with your doctor. In summary , the radiologist's findings are: 1. No acute findings 2. Probable small sliding hiatal hernia 3. Hepatic steatosis 4. Hypoattenuating bilateral renal lesions. Consider ultrasound for better characterization As we discussed, esophagitis and/or gastritis could cause your symptoms , and these would not show on tonight's tests. An acid justin often helps with these symptoms, such as prilosec or nexium. You should consider taking one of the medications once per day for 2 weeks to see if this results in resolution of your symptoms. Discharge Date/Time: 01/25/22 06:39
--- OUTSIDE RECORDS SUMMARY | 2022-01-25 02:21 | EXTERNAL MEDICAL SUMMARY RPT | Continuity of Care Document ---
:1955 Author Organization [facility] [place] Address [address] [place] [address] Phone Care Team Providers Name Role Phone Padilla Unavailable Unavailable Padilla Unavailable Unavailable Allergies No information. Encounters No information. Medications date description facility 20220105 Sulfamethoxazole 800 MG / Trimethoprim 160 MG Oral [facility] Tablet 20211229 Oxycodone Hydrochloride 1 MG/ML [facility] Om[facility]razole 20 MG Enteric Coated Capsule [facility] Problems date description facility 20210105 Contact with and (suspected) exposure t o COVID-19 [facility] Procedures date description facility 20220105 [facility] 20211222 [facility] 20211222 [facility] 20211222 [facility] 20211201 [facility] 20211201 [facility] 20211201 [facility] Results No information. Vital Signs date measurement value source 20211201 weight_standard 141.52 lb 20211201 weight_metric 64.19 kg 20211201 height_standard 69 in 20211201 height_metric 175.26 cm 20211201 BP_systolic 148 mm[Hg] 20211201 BP_diastolic 84 mm[Hg] 20211201 BMI 46.0 kg/m2 20211222 weight_standard 144.92 lb 20211222 weight_metric 65.74 kg 20211222 height_standard 69 in 20211222 height_metric 175.26 cm 20211222 heart_rate 64 /min 20211222 BP_systolic 118 mm[Hg] 20211222 BP_diastolic 86 mm[Hg] 20211222 BMI 47.2 kg/m2 20220105 weight_standard 144.02 lb 20220105 weight_metric 65.32 kg 20220105 height_standard 69 in 20220105 height_metric 175.26 cm 20220105 heart_rate 62 /min 20220105 BP_systolic 156 mm[Hg] 20220105 BP_diastolic 84 mm[Hg] 20220105 BMI 46.8 kg/m2
[2022-01-25 02:39] LABS: BASOPHILS % (AUTO) 0.2 %; EOSINOPHILS # (AUTO) 0.2 10^3/uL (0.0-0.7); EOSINOPHILS % (AUTO) 1.6 %; HCT - HEMATOCRIT 39.3 % (37.0-47.0); HGB - HEMOGLOBIN 13.1 g/dL (12.0-16.0); LYMPHOCYTES % (AUTO) 21.5 %; MEAN CORPUSCULAR HEMOGLOBIN 29.8 pg (27.0-31.0); MEAN CORPUSCULAR HGB CONC 33.3 g/dL (32.0-36.0); MEAN CORPUSCULAR VOLUME 89.3 fL (81.0-99.0); MONOCYTES # (AUTO) 0.6 10^3/uL (0.0-1.0); MONOCYTES % (AUTO) 5.8 %; NEUTROPHILS # (AUTO) 6.7 10^3/uL (1.5-6.6); NEUTROPHILS % (AUTO) 70.7 %; PLT - PLATELET COUNT 210 10^3/uL (130-450); RED CELL DISTRIBUTION WIDTH 14.1 % (12.0-15.0); WHITE BLOOD COUNT 9.5 x10^3/uL (4.8-10.8)
[2022-01-25] MEDS ORDERED: SODIUM CHLORIDE 0.9% 1,000 ML IV STA (02:47)
[2022-01-25 02:53] LABS: ALBUMIN 3.9 g/dL (3.2-5.5); ALBUMIN/GLOBULIN RATIO 1.1 (1.0-2.2); BILIRUBIN,TOTAL 0.6 mg/dL (0.2-1.0); CALCIUM 9.4 mg/dL (8.5-10.3); CREATININE 0.7 mg/dL (0.4-1.0); POTASSIUM 3.4 mmol/L (3.5-5.0); TOTAL PROTEIN 7.4 g/dL (6.7-8.2)
[2022-01-25] MEDS ORDERED: IOVERSOL 320 50 ML VIAL ONE (02:55)
[2022-01-25] MEDS ORDERED: IOVERSOL 320 100 ML VIAL IVP ONE ×2 (02:55→04:12)
[2022-01-25] MEDS ORDERED: IOVERSOL 320 50 ML VIAL PO ONE (03:44)
[2022-01-25 06:02] VITALS: BP 153/68
[2022-01-25] MEDS ORDERED: PANTOPRAZOLE 40 MG TABLET PO STA (06:13)
--- NOTE | 2022-01-25 10:05 | CT Report ---
PROCEDURE: Abdomen/Pelvis W INDICATIONS: abdominal pain CONTRAST: IV CONTRAST: Optiray 320 ml: 100 PO CONTRAST: Optiray 320 ml50 TECHNIQUE: After the administration of intravenous contrast, 5 mm thick sections acquired from the diaphragms to the symphysis. 5 mm thick coronal and sagittal reformats were acquired. For radiation dose reducti on, the following was used: automated exposure control, adjustment of mA and/or kV according to mik ent size. COMPARISON: Ultrasound abdomen, 08/28/2010. FINDINGS: Image quality: Excellent. ABDOMEN: Lung bases: Respiratory motions and left basilar atelectasis. Heart size is normal. There is a mode rate-sized hiatal hernia. Mild concentric thickening of the GE junction. Solid organs: Liver is normal in size. Mild hepatic steatosis. Spleen is normal in size and enhancem ent. Gallbladder is surgically absent Biliary system is non dilated. Pancreas enhances normally. No adrenal nodules. Kidneys demonstrate normal size and enhancement, without hydronephrosis. Small low-density cortical nodules are present bilaterally. Peritoneum and bowel: Surgical changes in stomach. Bowel loops demonstrate normal wall thickness and caliber. No free fluid or air. Nodes and vessels: No retroperitoneal or mesenteric adenopathy by size criteria. Aorta and inferior vena cava are normal in size. Miscellaneous: No ventral hernias. PELVIS: Genitourinary: Uterus is absent. There is a pessary in vagina. Bladder wall thickness is normal. Miscellaneous: No inguinal hernias or adenopathy. Bones: No suspicious bony lesions. No vertebral body compression fractures. Mild levoscoliosis. Th ere is grade 1 anterolisthesis of L4 on L5. Degenerative changes in the lower thoracic spine lumbar s pine. IMPRESSION: 1. No acute abnormalities in abdomen or pelvis. 2. A Moderate sized hiatal hernia. There are postsurgical changes in stomach. Concentric thickening i s noted at the GE junction. If clinically indicated, esophagram or upper endoscopy can be obtained fo r follow-up evaluation. 3. Mild hepatic steatosis. 4. Small low-density cortical nodules are seen in kidneys bilaterally, most likely renal cysts. Recom mend renal ultrasound for follow-up to confirm cystic nature. No significant discrepancy with the preliminary interpretation. Reviewed by: Jhon Davis MD on 01/25/2022 10:03 AM PDT Approved by: Jhon Davis MD on 01/25/2022 10:03 AM PDT Station ID: [id number]
== END 2022-01-25 06:39 | disposition home or self-care (01) ==
LOC: ED 02:09
DX: R10.13 Epigastric pain (principal); I10 Essential (primary) hypertension; E11.9 Type 2 diabetes mellitus without complications; Z98.84 Bariatric surgery status
CPT/HCPCS: 36415; 74177; 80053; 83690; 84484; 85025; 93005; 99284; A9270; Q9967

== ENCOUNTER 2022-02-24 18:47 | Outpatient (CLI) | payer MEDICARE, OTHER ==
--- NOTE | 2022-02-25 08:51 | Ultrasound Report ---
PROCEDURE: Retroperitoneal INDICATIONS: RENAL NODULE TECHNIQUE: Real-time scanning was performed of the retroperitoneal organs, with image documentation. COMPARISON: None. FINDINGS: Kidneys: Kidneys are normal in size. Right kidney measures 10.7 cm long; left kidney measures 10.9 cm long. Right renal cortical thickness is 1.5 cm; left renal cortical thickness is 1.2 cm. No jose d masses, hydronephrosis, or nephrolithiasis. Both kidneys have multiple simple renal cysts measurin g up to 1.7 cm on the right and 17 cm on the left. Bladder: Pre-void bladder volume is 34 mL. Pre-void images demonstrate no intraluminal masses or st ones. On pre-void images, bilateral ureteral jets are noted with color Doppler interrogation. (Of n ote, ureteral jets may not be detectable in up to 25% of cases due to insufficient differences in spe cific gravity between ureteral and bladder urine). Miscellaneous: No free abdominal fluid. IMPRESSION: Simple benign bilateral renal cysts. No solid renal masses. Reviewed by: Beka Jane on 02/25/2022 8:50 AM PDT Approved by: Beka Jane on 02/25/2022 8:50 AM PDT Station ID: [id number]
== END 2022-02-24 18:48 | disposition home or self-care (01) ==
LOC: DI 18:47
PROVIDERS: ATTEND Internal Medicine
DX: N28.1 Cyst of kidney, acquired (principal)

== ENCOUNTER 2022-04-29 12:48 | Outpatient (CLI) | payer MEDICARE, OTHER ==
--- NOTE | 2022-04-29 15:36 | Mammography Report ---
BILATERAL DIGITAL SCREENING MAMMOGRAM 3D/2D: 04/29/2022 CLINICAL: Routine screening. Comparison is made to exams dated: 04/07/2021 mammogram, 11/02/2018 mammogram, 06/20/2017 mammogram, 03/14/2015 mammogram, 04/02/2014 mammogram, and 09/25/2012 mammogram - [facility]. Ther e are scattered fibroglandular elements in both breasts. There is a focal asymmetry in the left breast central to the nipple anterior depth. No other significant masses, calcifications, or other findings are seen in either breast. IMPRESSION: INCOMPLETE: NEEDS ADDITIONAL IMAGING EVALUATION The focal asymmetry in the left breast is indeterminate. Additional views with possible ultrasound a re recommended. Based on the Tyrer Cuzick model (a risk assessment model) the patients lifetime risk is 9.1% and her 10 year risk is 4.6%. According to the ACR, ACS, and NCCN guidelines, an annual breast MRI exam horacio g with mammogram is recommended if the patients lifetime risk is 20% or greater. This exam was interpreted at Station ID: [id number]. NOTE: For mammograms, a report in lay terms will be sent to the patient. Approximately 15% of breast malignancies will not be visualized mammographically. In the management of a palpable breast mass, a negative mammogram must not discourage biopsy of a clinically suspicious lesion. Electronically Signed By: Bridgette Estrada M.D. lk/:04/29/2022 15:15:44 ACR BI-RADS Category 0: Incomplete 3340F PARENCHYMAL PATTERN: (A) - The breast(s) demonstrate(s) scattered fibroglandular densities. BI-RADS CATEGORY: (0) - 0 Mammo and [place] [id number] Immediate follow-up LATERALITY: (B)
== END 2022-04-29 12:49 | disposition home or self-care (01) ==
LOC: DI 12:48
DX: Z12.31 Encounter for screening mammogram for malignant neoplasm of breast (principal); R92.8 Other abnormal and inconclusive findings on diagnostic imaging of breast

== ENCOUNTER 2022-05-04 15:29 | Outpatient (CLI) | payer MEDICARE, OTHER ==
[2022-05-04 16:24] VITALS: BP 121/80
--- NOTE | 2022-05-04 16:24 | SLEEP CARE CONSULTATION ---
Information from patient questionnaire entered by Candelaria Huddleston MA. I have reviewed and concur with the information entered by Candelaria Huddleston MA. This document represents the service I personally performed and the decisions made by , Rita Gunter ARNP. History of Present Illness Service Date and Time: 05/04/2022 1529 Previous diagnosis: Severe, Obstructive Sleep Apnea-Hypopnea Syndrome AHI: 40.4 (in 2013)(31 in 2007) Reason for follow up: annual (LAST SEEN 12/2020, WANTS TO SWITCH DME, RESMED, [facility] 11/11/2021,) Equipment type: CPAP Equipment obtained from: [employer] (would like to change to [employer]) Mask style: Full face (Amarra View) Backup mask available: Yes (old mask) Last cushion change: 2 weeks Prior sleep studies: Yes Year and Where: 2013 - [facility], [address] [place] [address] Sleep HPI additional information: SHOLA FELIPE was diagnosed to have severe, AHI 40.4, obstructive sleep apnea- hypopnea syndrome and returned today with spouse for CPAP therapy annual follow- up. Sleep Study - Results Prior sleep studies: Yes Year and Where: 2013 - [facility], [address] [place] [address] Sleep CPAP Compliance Data - Data Reviewed with Patient Average duration of nightly device use: 7 hours 18 minutes Compliance rate %: 100 (90/90 days used) Current pressure setting (cmH2O): 7-13 Average residual AHI: 1.0 Central apnea: 0.4 Obstructive apnea: 0.3 Average large leak: 0.9 Subjective Missed days of use due to: reports: other (WANTS TO SWITCH FROM [facility] TO [facility]) Patient concerns: reports: mask discomfort (sometimes gets "tickle sensations" on chin; resolved). denies: aerophagia, air blowing in eyes, mask leak noise, condensation in mask/hose, nasal congestion, dry mouth, nose, throat, epistaxis, other Observed to snore while using device: No Current pressure setting perceived as: comfortable On therapy, patient: reports: sleeping better, awakening more refreshed, being more awake and alert during the day, more rested overall. denies: drowsiness while driving Initial [employer] Sleepiness Scale score: 9 (in 2009) Current [employer] Sleepiness Scale score: 5 (05/04/2022) Allergies and Home Medications Known drug allergies: Yes (SEE LIST) Home medication list reviewed: Yes (cephalexin for dental infection) Allergy and home medication list: Allergies acetaminophen [From Vicodin] Allergy (Verified 01/25/22 02:20) Hives ciprofloxacin [From Cipro] Allergy (Verified 01/25/22 02:20) Hives ciprofloxacin HCl * [From Cipro] Allergy (Verified 01/25/22 02:20) Hives hydrocodone bitartrate * [From Vicodin] Allergy (Verified 01/25/22 02:20) Hives macadamia nut oil Allergy (Verified 01/25/22 02:20) Anaphylaxis meperidine HCl * [From Demerol] Allergy (Verified 01/25/22 02:20) Emesis NSAIDS (Non-Steroidal Anti-Inflamma Allergy (Verified 01/25/22 02:20) Unknown shrimp Allergy (Verified 01/25/22 02:20) Anaphylaxis sunflower seed Allergy (Verified 01/25/22 02:20) Edema clarithromycin [From Biaxin] Adverse Reaction (Intermediate, Verified 01/25/22 02:20) diarrhea Review of Systems Review of systems same as previous: Yes (no changes) Physical Exam Vital signs obtained and entered by: MARISOL ONEAL Blood Pressure: 121/80 ( RSP 16, PULSE 62, RIGHT) Cuff size: wrist Heart Rate: 64 O2 Saturation: 98 Height: 5 ft 9 in Weight: 317 lb (CLOTHES) Weight change since last visit: LOSE - DIET AND EXCER Body Mass Index: 46.7 BMI Classification: Morbidly Obese Impression and Plan 1. Obstructive Sleep Apnea-Hypopnea Syndrome, severe, with excellent treatment compliance and good apnea control. On CPAP therapy, the patient has better sleep quality and is more rested overall. Patient would like to transfer to a new DME for supplies. I will have my donor relations coordinator inform of DME options. A DWO prescription will then be made. Patient advised to contact this office if further supply problems. Patient's apnea severity and rationale for treatment to reduce apnea, improve sleep quality and reduce cardiovascular and cerebrovascular events was reviewed. I also reviewed the benefit of consistent device use of CPAP for arrhythmia and asthma. 2. Obesity, unspecified. Currently patients BMI is 46.7. Obesity increases the risk of apnea, CPAP pressure requirements and overall health risks especially cardiovascular and diabetes. Thus patient is advised to continue to try lose weight. Weight loss can be done with reducing portion size, reducing refined foods and balancing content with vegetables, fruit and whole grain foods. In addition, patient encouraged to get regular exercise. The patient's CPAP pressure range should accommodate some weight loss. Symptoms to report for additional pressure adjustment discussed. * Continue auto CPAP pressure at 7-13 cmH2O * Transfer DME * Notify me if snoring with mask or feeling that the pressure is too much or too little * Attempt to lose weight * Call this office if any problems using CPAP * Return for follow up in 1 year, or sooner if concerns arise Counseling Topics: Spare mask, Weight loss health impact Visit Type: In Office Other Participants: Spouse/Significant Other Time Spent with Patient (minutes): 23 Provider Statement: I spent 100% of the Face to Face Visit with the patient with greater than 50% spent counseling the patient and coordination of care.
== END 2022-05-04 15:30 | disposition home or self-care (01) ==
LOC: SC 15:29
PROVIDERS: ATTEND Nurse Practitioner Family
DX: G47.33 Obstructive sleep apnea (adult) (pediatric) (principal); E66.01 Morbid (severe) obesity due to excess calories; Z68.42 Body mass index [BMI] 45.0-49.9, adult
CPT/HCPCS: 99213; G0463; 99212

== ENCOUNTER 2023-04-18 11:11 | Outpatient (CLI) | payer MEDICARE, OTHER ==
[2023-04-18 11:31] LABS: BASOPHILS % (AUTO) 0.2 %; EOSINOPHILS # (AUTO) 0.2 10^3/uL (0.0-0.7); EOSINOPHILS % (AUTO) 2.3 %; HCT - HEMATOCRIT 38.5 % (37.0-47.0); LYMPHOCYTES # (AUTO) 2.2 10^3/uL (1.5-3.5); LYMPHOCYTES % (AUTO) 27.4 %; MEAN CORPUSCULAR HGB CONC 33.8 g/dL (32.0-36.0); MEAN CORPUSCULAR VOLUME 88.9 fL (81.0-99.0); MEAN PLATELET VOLUME 10.6 fL (7.9-10.8); MONOCYTES # (AUTO) 0.6 10^3/uL (0.0-1.0); MONOCYTES % (AUTO) 7.2 %; NEUTROPHILS # (AUTO) 5.1 10^3/uL (1.5-6.6); NEUTROPHILS % (AUTO) 62.7 %; PLT - PLATELET COUNT 211 10^3/uL (130-450); RED BLOOD COUNT 4.33 10^6/uL (4.20-5.40); RED CELL DISTRIBUTION WIDTH 13.7 % (12.0-15.0); WHITE BLOOD COUNT 8.1 x10^3/uL (4.8-10.8)
[2023-04-18 11:48] LABS: ALBUMIN 3.7 g/dL (3.2-5.5); ALBUMIN/GLOBULIN RATIO 1.1 (1.0-2.2); ALKALINE PHOSPHATASE 98 IU/L (42-121); ALT ALANINE AMINOTRANSFERASE < 10 IU/L (10-60); AST ASPARTATE AMINOTRANSFERASE 18 IU/L (10-42); BILIRUBIN,TOTAL 0.9 mg/dL (0.2-1.0); BUN - BLOOD UREA NITROGEN 19 mg/dL (6-20); CALCIUM 9.2 mg/dL (8.5-10.3); CARBON DIOXIDE - CO2 26 mmol/L (21-32); CHLORIDE 108 mmol/L (101-111); CHOL/HDL RATIO 2.8 (<4.4); CHOLESTEROL 179 mg/dL; GFR - MDRD 55 (>89); GLUCOSE 111 mg/dL (70-100); HDL CHOLESTEROL 64 mg/dL; LDL CHOLESTEROL,CALCULATED 100 mg/dL; LDL/HDL RATIO 1.6 (<4.4); MAGNESIUM 2.2 mg/dL (1.7-2.8); POTASSIUM 3.9 mmol/L (3.5-5.0); SODIUM 140 mmol/L (135-145); TRIGLYCERIDES 77 mg/dL; VLDL CHOLESTEROL 15 mg/dL
[2023-04-18 11:58] LABS: THYROID STIMULATING HORMONE 3.99 uIU/mL (0.34-5.60)
[2023-04-18 12:33] LABS: ESTIMATED AVERAGE GLUCOSE 103 mg/dL (70-100); HEMOGLOBIN A1c% 5.2 % (4.27-6.07)
== END 2023-04-18 11:12 | disposition home or self-care (01) ==
LOC: LAB 11:11
PROVIDERS: ATTEND Internal Medicine Cardiovascular Disease
DX: I10 Essential (primary) hypertension (principal); I48.0 Paroxysmal atrial fibrillation; E78.5 Hyperlipidemia, unspecified; Z13.1 Encounter for screening for diabetes mellitus; E11.9 Type 2 diabetes mellitus without complications
CPT/HCPCS: 36415; 80053; 80061; 83036; 83721; 83735; 84443; 85025

== ENCOUNTER 2023-06-07 14:53 | Outpatient (CLI) | payer MEDICARE, OTHER ==
--- NOTE | 2023-06-07 15:26 | Sleep Patient Instructions ---
Sleep Center Visit Summary - Patient Visit Information Reason for Visit: Annual visit for PAP therapy - Patient Instructions Additional Instructions: You will continue with CPAP therapy with pressure set at 7-13 cmH2O. A supply prescription will be updated with your DME. We encourage you to continue to try to lose weight. Please follow up with the sleep care office in 1 year. - Clinic Information Contact: [facility] [address] [place] [address] [email or web address] T: [phone]
--- NOTE | 2023-06-07 15:50 | SLEEP CARE CONSULTATION ---
Information from patient questionnaire entered by Blank Mcleod. I have reviewed and concur with the information entered by Blank Mcleod. This document represents the service I personally performed and the decisions made by me, Rita Gunter ARNP. History of Present Illness Service Date and Time: 06/07/2023 1453 Previous diagnosis: Severe, Obstructive Sleep Apnea-Hypopnea Syndrome AHI: 40.4 (in 2013)(31 in 2007) Reason for follow up: annual (LAST SEEEN 04/2022) Accompanied by: Spouse Equipment type: CPAP (RESMED Airsense 10, s/u 2020) Equipment obtained from: [employer] (getting supplies) Mask style: Full face (Kiya View) Backup mask available: Yes (old mask) Last cushion change: 1 month Prior sleep studies: Yes Year and Where: 2013 - [facility], [address] [place] [address] Sleep HPI additional information: SHOLA FELIPE was diagnosed to have severe, AHI 40.4, obstructive sleep apnea- hypopnea syndrome and returned today with spouse for CPAP therapy annual follow- up. Sleep Study - Results Prior sleep studies: Yes Year and Where: 2013 - [facility], [address] [place] [address] Sleep CPAP Compliance Data - Data Reviewed with Patient Current pressure setting (cmH2O): 7-13 Compliance data discussion: She states she has been using her machine every night. Her machine data is not current online and we will have her bring in her SD card to verify her compliance and use. Subjective Patient concerns: denies: aerophagia, mask discomfort, air blowing in eyes, mask leak noise, condensation in mask/hose, nasal congestion, dry mouth, nose, throat, epistaxis Observed to snore while using device: No Current pressure setting perceived as: comfortable On therapy, patient: reports: sleeping better, awakening more refreshed, being more awake and alert during the day, more rested overall. denies: drowsiness while driving Initial [employer] Sleepiness Scale score: 9 (in 2009) Current [employer] Sleepiness Scale score: 10 (06/07/23) Allergies and Home Medications Known drug allergies: Yes (as listed) Drug allergies reviewed: Yes Home medication list reviewed: Yes (spironolactone, some reductions of meds updated in EMR) Allergy and home medication list: Allergies acetaminophen [From Vicodin] Allergy (Verified 01/25/22 02:20) Hives ciprofloxacin [From Cipro] Allergy (Verified 01/25/22 02:20) Hives ciprofloxacin HCl * [From Cipro] Allergy (Verified 01/25/22 02:20) Hives hydrocodone bitartrate * [From Vicodin] Allergy (Verified 01/25/22 02:20) Hives macadamia nut oil Allergy (Verified 01/25/22 02:20) Anaphylaxis meperidine HCl * [From Demerol] Allergy (Verified 01/25/22 02:20) Emesis NSAIDS (Non-Steroidal Anti-Inflamma Allergy (Verified 01/25/22 02:20) Unknown shrimp Allergy (Verified 01/25/22 02:20) Anaphylaxis sunflower seed Allergy (Verified 01/25/22 02:20) Edema clarithromycin [From Biaxin] Adverse Reaction (Intermediate, Verified 01/25/22 02:20) diarrhea Review of Systems Review of systems same as previous: Yes (no changes) Physical Exam Vital signs obtained and entered by: BLANK Streeter MA Blood Pressure: 129/75 (RIGHT) Cuff size: wrist Heart Rate: 76 O2 Saturation: 98 Height: 5 ft 9 in Weight: 317 lb Body Mass Index: 46.7 BMI Classification: Morbidly Obese Impression and Plan 1. Obstructive Sleep Apnea-Hypopnea Syndrome, severe, with unknown treatment compliance and unknown apnea control. On CPAP therapy, the patient has better sleep quality and is more rested overall. We were unable to obtain data online, her information is out of date. She will bring in her SD card so we can obtain the information needed. Patient has significant improvement of their sleep apnea and is satisfied with current CPAP therapy. Patient denies problems with oral dryness, nasal congestion, epistaxis, skin irritation or aerophagia. Patient's apnea severity and rationale for treatment to reduce apnea, improve sleep quality and reduce cardiovascular and cerebrovascular events was reviewed. I also reviewed the benefit of consistent device use of CPAP for arrhythmia and asthma. 2. Obesity, unspecified. Currently patients BMI is 46.7. Obesity increases the risk of apnea, CPAP pressure requirements and overall health risks especially cardiovascular and diabetes. Thus patient is advised to lose weight. * Continue auto CPAP pressure at 7-13 cmH2O * Patient to bring in SD card to get her data * Update supplies * Notify me if snoring with mask or feeling that the pressure is too much or too little * Attempt to lose weight * Call this office if any problems using CPAP * Return for follow up in 1 year, or sooner if concerns arise Counseling Topics: Spare mask, Weight loss health impact Visit Type: In Office Time Spent with Patient (minutes): 20 Provider Statement: I spent 100% of the Face to Face Visit with the patient with greater than 50% spent counseling the patient and coordination of care.
[2023-06-07 15:57] VITALS: BP 129/75; O2SAT 98
== END 2023-06-07 14:54 | disposition home or self-care (01) ==
LOC: SC 14:53
PROVIDERS: ATTEND Nurse Practitioner Family
DX: G47.33 Obstructive sleep apnea (adult) (pediatric) (principal); E66.01 Morbid (severe) obesity due to excess calories; Z68.42 Body mass index [BMI] 45.0-49.9, adult
CPT/HCPCS: 99213; G0463; 99212

== ENCOUNTER 2023-08-04 14:54 | Outpatient (CLI) | payer MEDICARE, OTHER ==
[2023-08-04 15:38] LABS: CALCIUM 9.4 mg/dL (8.5-10.3); CREATININE 0.9 mg/dL (0.6-1.3); POTASSIUM 3.6 mmol/L (3.5-4.5)
== END 2023-08-04 14:55 | disposition home or self-care (01) ==
LOC: LAB 14:54
PROVIDERS: ATTEND Internal Medicine Cardiovascular Disease
DX: I10 Essential (primary) hypertension (principal)
CPT/HCPCS: 36415; 80048

== ENCOUNTER 2024-03-26 11:32 | Outpatient (CLI) | payer MEDICARE, OTHER ==
[2024-03-26 11:56] LABS: BASOPHILS % (AUTO) 0.3 %; EOSINOPHILS # (AUTO) 0.2 10^3/uL (0.0-0.7); EOSINOPHILS % (AUTO) 2.6 %; HCT - HEMATOCRIT 39.2 % (37.0-47.0); HGB - HEMOGLOBIN 12.7 g/dL (12.0-16.0); LYMPHOCYTES # (AUTO) 1.8 10^3/uL (1.5-3.5); LYMPHOCYTES % (AUTO) 23.6 %; MEAN CORPUSCULAR HEMOGLOBIN 29.3 pg (27.0-31.0); MEAN CORPUSCULAR HGB CONC 32.4 g/dL (32.0-36.0); MEAN CORPUSCULAR VOLUME 90.3 fL (81.0-99.0); MEAN PLATELET VOLUME 10.7 fL (7.9-10.8); MONOCYTES # (AUTO) 0.5 10^3/uL (0.0-1.0); MONOCYTES % (AUTO) 6.1 %; NEUTROPHILS # (AUTO) 5.2 10^3/uL (1.5-6.6); NEUTROPHILS % (AUTO) 67.1 %; PLT - PLATELET COUNT 194 10^3/uL (130-450); RED BLOOD COUNT 4.34 10^6/uL (4.20-5.40); RED CELL DISTRIBUTION WIDTH 13.7 % (12.0-15.0); WHITE BLOOD COUNT 7.7 x10^3/uL (4.8-10.8)
[2024-03-26 12:11] LABS: ALBUMIN 3.8 g/dL (3.2-5.5); ALBUMIN/GLOBULIN RATIO 1.5 (1.0-2.2); BILIRUBIN,TOTAL 0.7 mg/dL (0.2-1.0); CALCIUM 9.2 mg/dL (8.5-10.3); CREATININE 0.8 mg/dL (0.6-1.3); POTASSIUM 3.4 mmol/L (3.5-4.5); TOTAL PROTEIN 6.3 g/dL (6.4-8.9)
[2024-03-26 13:01] LABS: ESTIMATED AVERAGE GLUCOSE 100 mg/dL (70-100); HEMOGLOBIN A1c% 5.1 % (4.27-6.07)
== END 2024-03-26 11:33 | disposition home or self-care (01) ==
LOC: LAB 11:32
DX: K91.2 Postsurgical malabsorption, not elsewhere classified (principal); Z98.84 Bariatric surgery status; I10 Essential (primary) hypertension; I48.0 Paroxysmal atrial fibrillation; D64.9 Anemia, unspecified; K21.9 Gastro-esophageal reflux disease without esophagitis
CPT/HCPCS: 36415; 80053; 82306; 82607; 82746; 83036; 84425; 84550; 85025

== ENCOUNTER 2024-05-22 13:37 | Outpatient (CLI) | payer MEDICARE, OTHER ==
[2024-05-22 14:04] LABS: CALCIUM 9.1 mg/dL (8.5-10.3); CREATININE 0.9 mg/dL (0.6-1.3); POTASSIUM 3.7 mmol/L (3.5-4.5)
== END 2024-05-22 13:38 | disposition home or self-care (01) ==
LOC: LAB 13:37
PROVIDERS: ATTEND Physician Assistant
DX: R60.0 Localized edema (principal)
CPT/HCPCS: 36415; 80048

== ENCOUNTER 2024-06-12 23:24 | Outpatient (CLI) | payer MEDICARE, OTHER | END 2024-06-12 23:25 | disposition critical access hospital (66) | LOC: EMS 23:24 | DX: R25.2 Cramp and spasm (principal); M54.50 Low back pain, unspecified | CPT/HCPCS: A0425; A0427 ==

== ENCOUNTER 2024-06-12 23:32 | Emergency (ER) | payer MEDICARE, OTHER ==
--- NOTE | 2024-06-13 01:58 | ED Physician Documentation ---
PD HPI BACK PAIN - Stated complaint Stated Complaint: GI - Chief complaint Chief Complaint: Back Pain - History obtained from History obtained from: Patient, EMS - Additional information Additional information: ROSINA. HPI from EMS, patient. Patient complains of gradual onset of atraumatic lower back pain, midline and right paralumbar region, at times radiating to the right hip. Over these weeks, the patient's pain has become increasingly severe, persistent, and exacerbated with decreasing provocation. The pain is exacerbated with movement of the lower back. Over the past 1 to 2 days, it has become associated with episodic and severe right lower back muscle spasms. She has seen PCP for these symptoms and has upcoming (initial) appointment with orthopedics in a week. She denies bowel incontinence. She says she has minor urinary incontinence but this has been present for several months (not new). Denies numbness, weakness. She says that since the back pain started, she went from ambulating without needing supportive device, then requiring a cane, and lately has been using a walker. Patient was evaluated in the [facility] emergency department yesterday for the symptoms. I requested and received the ED notes from this visit (via fax) which indicate she had a CT scan of her lumbar spine which showed diffuse degenerative changes, vertebral body height intact. She was prescribed methocarbamol as well as diazepam. Patient says these have not provided adequate relief since being discharged. She indicates to me that she also has oxycodone at home which was prescribed for her several months ago for an unrelated condition, but that she did not take any oxycodone for the muscle spasms due to concern over potential for interaction with the diazepam she was prescribed. PD PAST MEDICAL HISTORY - Past Medical History Past Medical History: Yes Cardiovascular: Hypertension, High cholesterol, Atrial fibrillation Respiratory: Asthma, Sleep apnea Neuro: Peripheral neuropathy Endocrine/Autoimmune: Type 2 diabetes GI: GERD, Hiatal hernia, Colon polyps, Hemorrhoids, Diverticulitis, Cholelithiasis, Other SHOP COORDINATOR: Fibroids : Retention, Kidney stones HEENT: Chronic sinusitis Psych: Anxiety, Panic attacks Musculoskeletal: Osteoarthritis, Fibromyalgia, Gout Derm: Rosacea - Past Surgical History Past Surgical History: Yes General: Cholecystectomy, Gastric surgery Ortho: Knee replacement /SHOP COORDINATOR: Hysterectomy Cardiovascular: Other - Present Medications Home Medications: Ambulatory Orders Medication Instructions Recorded Confirmed Furosemide [Lasix] 80 mg PO DAILY 04/15/13 06/07/23 Potassium Chloride 20 - 40 meq PO TID 04/15/13 06/07/23 Cholecalciferol (Vitamin D3) 1,000 unit PO DAILY 04/16/13 06/07/23 [Vitamin D] Ferrous Fumarate [Iron] 65 mg PO DAILY 04/16/13 06/07/23 Fluticasone [Flonase] 50 mcg NS TPN/PPN PRN 04/16/13 06/07/23 Lysine [l-Lysine] 500 mg PO DAILY 04/16/13 06/07/23 Multivitamin [Multi-Vitamin Daily] 1 each PO DAILY 04/16/13 06/07/23 EPINEPHrine [Epipen 2-Cortez] 0.3 mg IM ONCE PRN #2 unit 05/11/14 06/07/23 Cetirizine [ZyrTEC] 10 mg PO DAILY 10/10/14 06/07/23 allopurinoL [Allopurinol] 300 mg PO Q48H 10/10/14 06/07/23 Apixaban [Eliquis] 5 mg ORAL BID #60 tablet 08/29/18 06/07/23 Bisoprolol Fumarate 0.5 tab PO PRN PRN 08/29/18 06/07/23 Calcium Carbonate/Vitamin D3 1 tab PO DAILY 08/29/18 06/07/23 [Calcium 600-Vit D3 800 Tablet] Chlorhexidine Gluconate 15 ml PO BID 08/29/18 06/07/23 Clotrimazole/Betamethasone Dip 1 applic TOP BID PRN 08/29/18 06/07/23 [Clotrimazole-Betamethasone Lot] Ipratropium/Albuterol [Combivent 4 gm IH PRN PRN 08/29/18 06/07/23 Respimat] Mometasone/Formoterol [Dulera 200 1 - 2 puffs PO BID 08/29/18 06/07/23 Mcg/5 Mcg Inhaler] allopurinoL [Allopurinol] 600 mg PO Q48H 08/29/18 06/07/23 Oseltamivir Phosphate [Tamiflu] 75 mg PO BID #10 capsule 11/22/19 06/07/23 Metoprolol Succinate [Toprol Xl] See Rx Instructions .ROUTE .COMPLEX 06/07/23 06/07/23 Spironolactone [Aldactone] See Rx Instructions .ROUTE .COMPLEX 06/07/23 06/07/23 - Allergies Allergies/Adverse Reactions: Allergies Allergy/AdvReac Type Severity Reaction Status Date / Time acetaminophen [From Vicodin] Allergy Hives Verified 06/12/24 23:43 ciprofloxacin [From Cipro] Allergy Hives Verified 06/12/24 23:43 ciprofloxacin HCl * Allergy Hives Verified 06/12/24 23:43 [From Cipro] hydrocodone bitartrate * Allergy Hives Verified 06/12/24 23:43 [From Vicodin] macadamia nut oil Allergy Anaphylaxis Verified 06/12/24 23:43 meperidine HCl * Allergy Emesis Verified 06/12/24 23:43 [From Demerol] NSAIDS (Non-Steroidal Allergy Unknown Verified 06/12/24 23:43 Anti-Inflamma shrimp Allergy Anaphylaxis Verified 06/12/24 23:43 sunflower seed Allergy Edema Verified 06/12/24 23:43 clarithromycin [From Biaxin] AdvReac Intermediate diarrhea Verified 06/12/24 23:43 - Social History Does the pt smoke?: No Smoking Status: Never smoker Does the pt drink ETOH?: No Does the pt have substance abuse?: No - Immunizations Immunizations are current?: No Immunizations: TDAP >10years/unknown, Other immun current - POLST Patient has POLST: No POLST Status: Full Code PD ED PE NORMAL - Vitals Vital signs reviewed: Yes - General General: Alert and oriented X 3, No acute distress (NAD at rest; sudden episodes of obvious painful distress with movement of lower back (during exam)), Well developed/nourished - Cardiac Cardiac: RRR, No murmur - Respiratory Respiratory: No respiratory distress, Clear bilaterally - Abdomen Abdomen: Soft, Non tender - Derm Derm: No rash - Neuro Neuro: No motor deficit (5/5 bilateral dorsi/plantarflexion), Other (2+/4 bi lateral patellar DTR without clonus) Results - Vitals Vitals: Vital Signs - 24 hr 06/12/24 06/13/24 06/13/24 23:43 01:57 03:10 Temperature 36.5 C Heart Rate 66 80 62 Respiratory 16 16 16 Rate Blood Pressure 194/94 H 155/81 H 161/90 H O2 Saturation 99 96 97 06/13/24 05:00 Temperature Heart Rate 63 Respiratory 16 Rate Blood Pressure 145/79 H O2 Saturation 96 Oxygen O2 Source Room air - Labs Labs: Microbiology 06/13/24 02:34 Urine Culture - Preliminary Urine,Clean Catch CULTURE IN PROGRESS. RESULTS TO FOLLOW. Laboratory Tests 06/13/24 06/13/24 06/13/24 02:34 02:45 02:45 WBC 12.4 H RBC 4.49 Hgb 13.3 Hct 40.3 MCV 89.8 MCH 29.6 MCHC 33.0 RDW 13.5 Plt Count 222 MPV 11.0 H Neut # (Auto) 10.9 H Lymph # (Auto) 0.9 L Luna # (Auto) 0.4 Eos # (Auto) 0.0 Baso # (Auto) 0.0 Absolute Nucleated RBC 0.00 Nucleated RBC % 0.0 Sodium 138 Potassium 3.8 Chloride 106 Carbon Dioxide 24 Anion Gap 8.0 BUN 29 H Creatinine 1.0 Estimated GFR (MDRD) 55 L Glucose 147 H Calcium 9.1 Magnesium 2.0 Total Bilirubin 0.6 AST 11 ALT 6 L Alkaline Phosphatase 89 Total Protein 6.3 L Albumin 3.7 Globulin 2.6 Albumin/Globulin Ratio 1.4 Lipase 14 Urine Color YELLOW Urine Clarity CLEAR Urine pH 6.0 Ur Specific Valentine 1.020 Urine Protein NEGATIVE Urine Glucose (UA) NEGATIVE Urine Ketones NEGATIVE Urine Occult Blood NEGATIVE Urine Nitrite NEGATIVE Urine Bilirubin NEGATIVE Urine Urobilinogen 0.2 (NORMAL) Ur Leukocyte Esterase SMALL H Urine RBC 0-5 Urine WBC 0-3 Ur Squamous Epith Cells FEW Squamous Urine Bacteria Few Ur Microscopic Review INDICATED Urine Culture Comments INDICATED PD Medical Decision Making - ED course Complexity details: considered differential, d/w patient ED course: No concerning nor diagnostic findings on CBC, ER abdominal panel. Mild leukocytosis noted (WBC 12.4). Unremarkable urinalysis (small leukocyte esterase on microscopic, but entirely normal microscopic exam including no WBCs). She is given 1 mg IV Dilaudid and I ordered 1 mg IV Dilaudid PRN Q2 hours. Plan is to hold the patient in the emergency department until MRI of lumbar spine can be performed later this morning. Care of patient is signed out to the oncoming ED physician (Dr. Parham) at the end of my shift.
[2024-06-13] MEDS: HYDROmorphone 1 MG/ML CARPUJECT IVP STA (02:33)
[2024-06-13 02:52] LABS: BASOPHILS % (AUTO) 0.1 %; EOSINOPHILS % (AUTO) 0.3 %; HCT - HEMATOCRIT 40.3 % (37.0-47.0); HGB - HEMOGLOBIN 13.3 g/dL (12.0-16.0); LYMPHOCYTES # (AUTO) 0.9 10^3/uL (1.5-3.5); LYMPHOCYTES % (AUTO) 7.5 %; MEAN CORPUSCULAR HEMOGLOBIN 29.6 pg (27.0-31.0); MEAN CORPUSCULAR VOLUME 89.8 fL (81.0-99.0); MONOCYTES # (AUTO) 0.4 10^3/uL (0.0-1.0); MONOCYTES % (AUTO) 3.5 %; NEUTROPHILS # (AUTO) 10.9 10^3/uL (1.5-6.6); NEUTROPHILS % (AUTO) 88.2 %; PLT - PLATELET COUNT 222 10^3/uL (130-450); RED BLOOD COUNT 4.49 10^6/uL (4.20-5.40); RED CELL DISTRIBUTION WIDTH 13.5 % (12.0-15.0); WHITE BLOOD COUNT 12.4 x10^3/uL (4.8-10.8)
[2024-06-13 02:54] LABS: BILIRUBIN,URINE NEGATIVE (NEGATIVE); GLUCOSE, URINE (UA) NEGATIVE (NEGATIVE); KETONES,URINE (UA) NEGATIVE (NEGATIVE); LEUKOCYTE ESTERASE, URINE SMALL (NEGATIVE); NITRITE,URINE NEGATIVE (NEGATIVE); OCCULT BLOOD,URINE NEGATIVE (NEGATIVE); PROTEIN,URINE NEGATIVE (NEGATIVE); UROBILINOGEN,URINE 0.2 (NORMAL) E.U./dL (NORMAL)
[2024-06-13 02:55] LABS: CLARITY,URINE CLEAR (CLEAR)
[2024-06-13 02:59] LABS: BACTERIA,URINE Few /HPF (None Seen); RBC,URINE 0-5 /HPF (0-5); SQUAMOUS EPITHELIAL CELL,UR FEW Squamous (<= Few); WBC,URINE 0-3 /HPF (0-5)
[2024-06-13 03:07] LABS: ALBUMIN 3.7 g/dL (3.2-5.5); ALBUMIN/GLOBULIN RATIO 1.4 (1.0-2.2); BILIRUBIN,TOTAL 0.6 mg/dL (0.2-1.0); CALCIUM 9.1 mg/dL (8.5-10.3); POTASSIUM 3.8 mmol/L (3.5-4.5); TOTAL PROTEIN 6.3 g/dL (6.4-8.9)
[2024-06-13] MEDS ORDERED: HYDROmorphone 1 MG/ML CARPUJECT IVP PRN (04:25)
[2024-06-13] MEDS ORDERED: GADOTERATE MEGLUMINE 5 MMOL/10 ML VIAL ONE (07:24)
[2024-06-13] MEDS ORDERED: GADOTERATE MEGLUMINE 10 MMOL/20 ML VIAL ONE (07:24)
[2024-06-13] MEDS: LORazepam 2 MG/ML VIAL IVP STA (11:15)
[2024-06-13] MEDS: GADOTERATE MEGLUMINE 5 MMOL/10 ML VIAL IVP ONE (11:32)
[2024-06-13] MEDS: GADOTERATE MEGLUMINE 10 MMOL/20 ML VIAL IVP ONE (11:33)
--- NOTE | 2024-06-13 12:41 | MRI Report ---
PROCEDURE: Lumbar Spine W/WO INDICATIONS: severe back pain CONTRAST: clariscan 30ml TECHNIQUE: Noncontrast sagittal T1 spin echo and T2 fast spin echo, sagittal STIR, axial T1 and T2 fast spin ech o through the lumbar spine. In cases with scoliosis, additional coronal T2 fast spin echo may be per formed. After the administration of contrast, sagittal and axial T1 spin echo with fat saturation th rough the lumbar spine. COMPARISON: None. FINDINGS: Image quality: Excellent. Alignment and curvature: There is normal bony alignment. Marrow: Marrow is of normal overall signal. No acute vertebral body compression fractures. No susp icious marrow enhancement. Spinal cord: Conus medullaris terminates at the L1 level. Visualized spinal cord demonstrates yolanda l signal, without suspicious enhancement. Paraspinous soft tissues: No paravertebral masses or abnormal enhancement. T12-L1: Disc desiccation and mild disc height loss. L1-L2: Disc desiccation and mild disc height loss. L2-L3: Disc desiccation, mild disc height loss, broad-based disc bulge, facet hypertrophy, mild li gamentum flavum hypertrophy. Mild spinal canal narrowing. L3-L4: Disc desiccation, mild disc height loss, broad-based disc bulge, left greater than right fac et hypertrophy. Moderate spinal canal narrowing. Moderate left neural foraminal narrowing. L4-L5: Disc desiccation, broad-based disc bulge, ligament flavum hypertrophy, facet upper tree and facet effusions. Mild bilateral neural foraminal narrowing. L5-S1: Central disc protrusion with superimposed broad-based disc bulge. The disc protrusion contac ts the approaching left S1 nerve root. Facet hypertrophy and effusions. Moderate bilateral neural for aminal narrowing. IMPRESSION: Multilevel degenerative disc disease and facet arthrosis. Of note: Moderate spinal canal narrowing at L3-4 and mild spinal canal narrowing at L2-3. Up to moderate neural foraminal narrowing at L3-4, L5-S1. Central disc protrusion at L5-S1, contacting the approaching left S1 nerve root. Reviewed by: Carlos Mcdonnell MD on 06/13/2024 12:40 PM PDT Approved by: Carlos Mcdonnell MD on 06/13/2024 12:40 PM PDT Station ID: [id number]
[2024-06-13 14:12] VITALS: BP 130/82; O2SAT 98
--- NOTE | 2024-06-14 09:59 | ED Physician Documentation ---
ED Addendum - Addendum Addendum: 06/14/24 09:58 Fran Wilson was not able to fill his prescription at [facility] in [place] and he would like the prescription sent to [facility] pharmacy. His prescription for oxycodone 1-2 every 4 as needed pain greater than 8 #40 was E scribed to the would be [facility] pharmacy.
--- NOTE | 2024-06-20 11:14 | ED Physician Documentation ---
ED Addendum - Addendum Addendum: 06/20/24 10:36 The pt is signed out to me at change of shift, pending MRI lumbar spine and final disposition. She had presented with chronic low back pain, which has recently been flaring up, causing episodes of pain at home, which the pt feels are unmanageable. She is currently scheduled to see a marine cargo specialist in a week. My partner ordered MRI to further evaluate her pain. The pt reports to me that she has had no recent trauma. She denies loss of bowel or bladder control. No lower extremity neurologic deficits. She feels the pain between her low back and her hip on the R. She is on a couple of muscle relaxers, which she has been taking, and states these aren't helping. She has oxycodone at home, but has not been taking this. The pt's MRI shows chronic changes and a herniated disc. The pt has had no recent trauma to indicate that any of these changes are new. I have had a very long discussion with first the pt, and then the pt and her daughter. The pt and daughter have concerns that the pt is not getting pain control at home. I have discussed with them that the pt is not taking the pain medication she already has, and that this is the first step before declaring that the pain is beyond the ability to control at home. There is no emergent component to the pt's current situation, either clinically or by imaging. I have refilled the pt's oxycodone, and given her instructions for higher dosing within the range she may take it. We have discussed the importance of follow-up, as well as the usual indications for return. Final impression: 1. DJD lumbar spine 2. Herniated disc Disposition: Discharge home in stable and improved condition
== END 2024-06-13 14:45 | disposition home or self-care (01) ==
LOC: EDBD → EDUNIT# → ED 23:32
DX: M47.816 Spondylosis without myelopathy or radiculopathy, lumbar region (principal); M51.27 Other intervertebral disc displacement, lumbosacral region; I10 Essential (primary) hypertension; E78.00 Pure hypercholesterolemia, unspecified; I48.91 Unspecified atrial fibrillation; G47.30 Sleep apnea, unspecified; E11.42 Type 2 diabetes mellitus with diabetic polyneuropathy; Z86.010 Personal history of colon polyps; Z87.19 Personal history of other diseases of the digestive system; Z87.442 Personal history of urinary calculi; Z98.84 Bariatric surgery status; Z79.01 Long term (current) use of anticoagulants; Z79.899 Other long term (current) drug therapy
CPT/HCPCS: 36415; 72158; 80053; 81001; 83690; 83735; 85025; 87086; 96374; 96375; 99284; A9575; J1170; J2060; 81003